=== PATIENT | female | born 1975 | race African-American/Black ===

== ENCOUNTER 2023-04-20 19:27 | Outpatient (REF) | payer OTHER, SELFPAY ==
[2023-04-26 15:10] LABS: Age Gdln ACOG Testing Note (.); HPV Aptima Negative (Negative); IGP, Aptima HPV, rfx 16/18,45 Note (.)
== END 2023-04-20 19:28 | disposition home or self-care (01) ==
LOC: LAB 19:27
PROVIDERS: Visit Provider Obstetrics & Gynecology
DX: Z12.4 Encounter for screening for malignant neoplasm of cervix (principal)
CPT/HCPCS: 87624; G0145

== ENCOUNTER 2024-04-23 21:54 | Outpatient (REF) | payer OTHER, SELFPAY | END 2024-04-23 21:55 | disposition home or self-care (01) | LOC: LAB 21:54 | PROVIDERS: Visit Provider Obstetrics & Gynecology | DX: Z01.419 Encounter for gynecological examination (general) (routine) without abnormal findings (principal) | CPT/HCPCS: 87624; 88175 ==

== ENCOUNTER 2025-04-25 12:57 | Outpatient (OUT) | payer OTHER, SELFPAY ==
--- OUTSIDE RECORDS SUMMARY | 2025-04-25 11:00 | XMS_ITS | Encounter Summary ---
Author Organization [facility] Address [address] [place] [address] Care Team Providers Care Process Development Chemist Name Role Phone Josefina Farias MD Primary Care Provider [phone] Brigida Gonzalez NP Unavailable Reason for Visit * Reason Comments Well Women Visit Encounter Details Date Type Department Care Team (Late st Contact Info) Description 04/25/2025 11:00 AM EDT Office Visit [facility] [address] [place] [address] Janay Brady, KESHA [address] [place] [address] Well woman exam with routine gynecological exam; [...] 12:04 PM EDT documented in this encounter Plan of Treatment Upcoming Encounters Date Type Department Care Team (Late st Contact Info) Description 04/28/2026 1:00 PM EDT Procedure Visit [facility] [address] [place] [address] Milton Schumacher DO [address] [place] [address] Scheduled Orders Name Type Priority Associated Diagnoses [...] Lab Routine Exposure to STD Ordered: 04/25/2025 documented as of this encounter [...] documented in this encounter Visit Diagnoses Diagnosis Well woman exam with routine gynecological exam Routine gynecological examination Breast cancer screening by mammogram Postmenopausal state Asymptomatic postmenopausal status (age-related) (natural) UTI symptoms Heat rash Prickly heat Exposure to STD documented in this encounter Care Teams Process Development Chemist Relationship Specialty Start Date End Date Josefina Farias MD [address] [place] [address] PCP - General Family Medicine 11/30/22 Brigida Gonzalez NP PCP - [facility] 01/23/24 documented as of this encounter
--- OUTSIDE RECORDS SUMMARY | 2025-04-25 13:03 | XMS_ITS | Encounter Summary ---
Author Organization [facility] Address [address] [place] [address] Care Team Providers Care Cinetechnician Name Role Phone Josefina Farias MD Unavailable Josefina Farias MD Primary Care Provider Denia Munoz MD Unavailable Brigida Gonzalez NP Unavailable Encounter Details Date Type Department Care Team (Late st Contact Info) Description 01/27/2023 Abstract [facility] Family Medicine [address] [place] [address] Sasha Demarco, MOVEMAN [address] [place] [address] Social History Tobacco Use Types Packs/Day Years Used Date Smoking Tobacco: Never Assessed Comments Unknown Sex and Gender Information Value Date Recorded Sex Assigned at Not on file Legal Sex Female 6:41 PM EDT Gender Identity Not on file Sexual Orientation Not on file documented as of this encounter Plan of Treatment Upcoming Encounters Date Type Department Care Team (Late st Contact Info) Description 04/28/2026 1:00 PM EDT Procedure Visit [facility] [address] [place] [address] Milton Schumacher DO [address] [place], [place] [id number] documented as of this encounter Visit Diagnoses Not on filedocumented in this encounter Care Teams Cinetechnician Relationship Specialty Start Date End Date Josefina Farias MD [address] [place], [place] [id number] PCP - [facility] 01/22/23 Josefina Farias MD [address] [place], [place] [id number] PCP - General Family Medicine 11/30/22 Denia Munoz MD [address] [place], [place] [id number] PCP - [facility] 10/24/23 Brigida Gonzalez NP PCP - [facility] 01/23/24 documented as of this encounter
--- OUTSIDE RECORDS SUMMARY | 2025-04-25 13:03 | XMS_ITS | Patient Health Record ---
Author Organization [facility] Address [address] [place], [place] [address] Care Team Providers Care Putter In Name Role Phone Vangie Amaya Unavailable [phone] Herminia Francis Unavailable [phone] Allergies No Known Allergies Reason For Referral No Information Social History Tobacco Use: Social History Observation Description Date Details (start date - stop date) Never Smoker NA - NA Sex Assigned At : Social History Observation Description Sex Assigned At Female Tobacco Control (Standard) Question Answer Notes Tobacco use: Nonsmoker Problems Problem Type SNOMED Code ICD Code Onset Dates Problem Status W/U Status Risk Notes Problem Obese class I ([id number]) BMI 33.0-33.9,a dult (Z68.33) Active confirmed Problem BMI 30+ - obesity (993408505) BMI 32.0-32.9,a dult (Z68.32) Active confirmed Vital Signs Heart Rate 95 /min 03/28/2025 Blood pressure diastolic 89 mm Hg 03/28/2025 Height-cm 160.02 cm 03/28/2025 Weight-kg 83.92 kg 03/28/2025 Height 63 in 03/28/2025 Blood pressure systolic 142 mm Hg 03/28/2025 Weight 185 lbs 03/28/2025 BMI 32.77 kg/m2 03/28/2025 Encounters Encounter Location Date Provider Diagnosis [facility] [address] [place], [place] [id number] 08/10/2024 Herminia Francis BMI 33.0-33.9,adul t Z68.33 ; Dietary counseling Z71.3 ; Exercise counseling Z71.82 ; Encounter for screening for dental disorders Z13.84 ; Dental caries into dentine K02.62 and Encounter for dental examination and cleaning with abnormal findings Z01.21 [facility] [address] [place], [place] [id number] 10/01/2024 Herminia Francis Dental caries into dentine K02.62 [facility] [address] [place], [place] [id number] 02/11/2025 Herminia Francis BMI 33.0-33.9,adul t Z68.33 ; Dietary counseling Z71.3 ; Exercise counseling Z71.82 ; Dental caries into dentine K02.62 and Encounter for dental examination and cleaning with abnormal findings Z01.21 [facility] [address] [place], [place] [id number] 03/28/2025 Vangie Amaya BMI 32.0-32.9,adul t Z68.32 and Dental caries into dentine K02.62 Assessments Encounter Date Diagnosis (ICD Code) Assessment Notes Treatment Notes Treatment Clinical Notes Section Notes 08/10/2024 BMI 33.0-33.9,adult (ICD-10 - Z68.33) 10/01/2024 Dental caries into dentine (ICD-10 - K02.62) 02/11/2025 BMI 33.0-33.9,adult (ICD-10 - Z68.33) 03/28/2025 BMI 32.0-32.9,adult (ICD-10 - Z68.32) 03/28/2025 Dental caries into dentine (ICD-10 - K02.62) 02/11/2025 Dietary counseling (ICD-10 - Z71.3) 08/10/2024 Dietary counseling (ICD-10 - Z71.3) 08/10/2024 Exercise counseling (ICD-10 - Z71.82) 02/11/2025 Exercise counseling (ICD-10 - Z71.82) 02/11/2025 Dental caries into dentine (ICD-10 - K02.62) 08/10/2024 Encounter for screening for dental disorders (ICD-10 - Z13.84) 08/10/2024 Dental caries into dentine (ICD-10 - K02.62) 02/11/2025 Encounter for dental examination and cleaning with abnormal findings (ICD-10 - Z01.21) 08/10/2024 Encounter for dental examination and cleaning with abnormal findings (ICD-10 - Z01.21) Plan Of Treatment Next Appt Details Provider Name:Vangie light, 05/02/2025 12:45:00 PM, [address] [place] [address], [phone], Provider Name:Vangie light, 08/29/2025 12:45:00 PM, [address] [place] [address], [phone], Insurance Providers Payer Name Payer Address Payer Phone Subscriber Number Group Number Insured Name Patient Relationship to Insured Coverage Start Date Coverage End Date [employer]e [employer] [facility] [address] [address] [place] [address] [id number] Felicitas Steve Self - patient is the insured 3 [employer]icai d [facility] after Sondra Adams e [employer] [address] [place], [place] [id number] Felicitas Steve Self - patient is the insured 3
--- OUTSIDE RECORDS SUMMARY | 2025-04-25 13:03 | XMS_ITS | Encounter Summary ---
Author Organization [facility] Address [address] [place] [address] Care Team Providers Care School Custodian Name Role Phone Josefina Farias MD Primary Care Provider [phone] Brigida Gonzalez OVERLOCK ELASTIC ATTACHER Unavailable Encounter Details Date Type Department Care Team (Late Contact Info) Description 04/23/2024 Abstract [facility] [address] [place] [address] Milton Schumacher, [address] [place], [facility] Social History Tobacco Use Types Packs/Day Years Used Date Smoking Tobacco: Never Smokeless Tobacco: Never Alcohol Use Standard Drinks/Week Comments Yes 2 (1 standard drink = 0.6 oz pure alcohol) Alcohol: 1 or 2 drinks on a typical day / 2 to 4 times a month. Caffeine: 1-2 cups/day soda, tea PHQ-2 Answer Date Recorded Patient Health Questionnaire-2 Score 0 05/06/2023 Comments Unknown Sex and Gender Information Value Date Recorded Sex Assigned at Not on file Legal Sex Female 6:41 PM EDT Gender Identity Not on file Sexual Orientation Not on file documented as of this encounter Plan of Treatment Upcoming Encounters Date Type Department Care Team (Late Contact Info) Description 04/28/2026 1:00 PM EDT Procedure Visit [facility] [address] [place] [address] Milton Schumacher [address] [place] [address] documented as of this encounter Visit Diagnoses Not on filedocumented in this encounter Care Teams School Custodian Relationship Specialty Start Date End Date Josefina Farias MD [address] [place] [address] PCP - General Family Medicine 11/30/22 Brigida Gonzalez NP PCP - [facility] 01/23/24 documented as of this encounter
--- OUTSIDE RECORDS SUMMARY | 2025-04-25 13:03 | XMS_ITS | Encounter Summary ---
Author Organization [facility] Address [address] [place] [address] Care Team Providers Care Boat Builder Name Role Phone Josefina Farias MD Primary Care Provider [phone] Brigida Gonzalez TAX SERVICES PROFESSIONAL Unavailable Encounter Details Date Type Department Care Team (Latest Contact Info) Description 04/24/2025 Travel Social History Tobacco Use Types Packs/Day Years [...] EDT Procedure Visit [facility] [address] [place] [address] Milton Schumacher DO [address] [place] [address] documented as of this encounter Visit Diagnoses Not on filedocumented in this encounter Care Teams Boat Builder Relationship Specialty Start Date End Date Josefina Farias MD [address] [place] [address] PCP - General Family Medicine 11/30/22 Brigida Gonzalez NP PCP - [facility] 01/23/24 documented as of this encounter
--- OUTSIDE RECORDS SUMMARY | 2025-04-25 13:03 | XMS_ITS | Clinical Summary ---
Author Organization [employer] Address [id number] [address] [place] [address] Care Team Providers Care Prepared Foods Team Leader Name Role Phone Josefina Farias MD Primary Care Provider [phone] Allergies Active Allergy Reactions Criticality Noted Date Comments Propoxyphene Other (See Comments) 04/19/2023 Darvocet Medications cyclobenzaprine (FLEXERIL) 10 mg tablet Take 1 tablet (10 mg total) by mouth 2 (two) times a day as needed for muscle spasms. 10 tablet 05/03/2023 Active ibuprofen (MOTRIN) 800 mg tablet Take 1 tablet (800 mg total) by mouth every 6 (six) hours as needed for pain. 30 tablet 05/03/2023 Active lidocaine (LIDODERM) 5 % Place 1 patch on the skin daily. Remove & Discard patch within 12 hours or as directed by 15 patch 05/03/2023 Active Encounters Date Type Department Care Team Description 04/23/2025 Telephone [facility] Janay Henao CMA Establish Care from Last 3 Months Family History Medical History Relation Name Comments No Known Problems Cousin No Known Problems Daughter No Known Problems Father No Known Problems Maternal Aunt No Known Problems Maternal Grandfather No Known Problems Maternal Grandmother No Known Problems Mother No Known Problems Paternal Aunt No Known Problems Paternal Grandfather No Known Problems Paternal Grandmother No Known Problems Sister BRCA 1/2 Neg Hx Breast cancer Neg Hx Endometrial cancer Neg Hx Ovarian cancer Neg Hx Relation Name Status Comments Cousin Daughter Father Maternal Aunt Maternal Grandfather Maternal Grandmother Mother Paternal Aunt Paternal Grandfather Paternal Grandmother Sister Social History Tobacco Use Types Packs/Day Years Used Date Smoking Tobacco: Never Assessed Childcare Answer Date Recorded Childcare Unknown 01/03/2019 Employment Answer Date Recorded Employment Unknown 01/03/2019 Purpose - Life Answer Date Recorded Purpose and direction in life Unknown Comments Unknown Sex and Gender Information Value Date Recorded Sex Assigned at Not on file Legal Sex Female 11:43 AM EDT Gender Identity Not on file Sexual Orientation Not on file Last Filed Vital Signs Vital Sign Reading Time Taken Comments Blood Pressure 152/91 05/03/2023 10:10 PM EDT Pulse 87 05/03/2023 8:55 PM EDT Temperature 36.8 C (98.3 F) 05/03/2023 8:55 PM EDT Respiratory Rate 20 05/03/2023 8:55 PM EDT Oxygen Saturation 97% 05/03/2023 10:10 PM EDT Inhaled Oxygen Concentration - - Weight 86.6 kg (191 lb) 05/03/2023 8:55 PM EDT Height 160 cm (5' 3 ) 05/03/2023 8:55 PM EDT Body Mass Index 33.83 05/03/2023 8:55 PM EDT Plan of Treatment Health Maintenance Due Date Last Done Comments Depression Screening 1986 Tobacco Screening 1986 Adult BMI Screening 05/03/2024 05/03/2023 Zoster (Shingles) Vaccine (1 of 2) 2024 COVID-19 Vaccine ( - 2024-2 6 season) 2025 06/08/2021, 11/11/2020, 10/21/2020 Influenza Vaccine 03/25/2025 DTaP,Tdap and Td Vaccines (2 - Td or Tdap) 11/02/2026 11/02/2016 Pap Smear 04/23/2027 04/23/2024 Medical Devices Not on file Insurance [employer] Care Teams Prepared Foods Team Leader Relationship Specialty Start Date End Date Josefina Farias MD PCP - General Family Medicine 05/03/23
--- OUTSIDE RECORDS SUMMARY | 2025-04-25 13:03 | XMS_ITS | Encounter Summary ---
Author Organization [facility] Address [address] [place] [address] Care Team Providers Care Mailroom Manager Name Role Phone Josefina Farias MD Primary Care Provider [phone] Brigida Gonzalez NP Unavailable Encounter Details Date Type Department Care Team (Late Contact Info) Description 04/25/2025 Bamboo flowsheet [facility] [address] [facility] [place] [place] [address] Janay Brady, KESHA [address] [facility] [place] [address] Social History Tobacco Use Types Packs/Day Years [...] 1:00 PM EDT Procedure Visit [facility] [address] [facility] [place] [place] [address] Milton Schumacher, [address] [place] [address] documented as of this encounter Visit Diagnoses Not on filedocumented in this encounter Care Teams Mailroom Manager Relationship Specialty Start Date End Date Josefina Farias MD [address] [place] [address] PCP - General Family Medicine 11/30/22 Brigida Gonzalez NP PCP - [facility] 01/23/24 documented as of this encounter
--- OUTSIDE RECORDS SUMMARY | 2025-04-25 13:03 | XMS_ITS | Encounter Summary ---
Author Organization [facility] Address [address] [place] [address] Care Team Providers Care Pipe Coverer Helper Name Role Phone Josefina Farias MD Unavailable Josefina Farias MD Primary Care Provider [phone] Denia Munoz MD Unavailable Brigida Gonzalez NP Unavailable Encounter Details Date Type Department Care Team (Late st Contact Info) Description 05/13/2023 Abstract [facility] Family Medicine [address] [place] [address] Dilcia Elizabeth NP [address] [place] [id number] Social History Tobacco Use Types Packs/Day Years Used Date Smoking Tobacco: Never Smokeless Tobacco: Never Tobacco Cessation:Counseling Given: Not Answered Alcohol Use Standard Drinks/Week Comments Yes 2 [...] EDT Procedure Visit [facility] [address] [facility] [place] [address] Milton Schumacher DO [address] [facility] [place] [address] documented as of this encounter Visit Diagnoses Not on filedocumented in this encounter Care Teams Pipe Coverer Helper Relationship Specialty Start Date End Date Josefina Farias MD [address] [place] [address] PCP - [facility] 01/22/23 Josefina Farias MD [address] [place], [place] [id number] PCP - General Family Medicine 11/30/22 Denia Munoz MD [address] [place] [address] PCP - [facility] 10/24/23 Brigida Gonzalez NP PCP - [facility] 01/23/24 documented as of this encounter
--- OUTSIDE RECORDS SUMMARY | 2025-04-25 13:03 | XMS_ITS | Clinical Summary ---
Author Organization [facility] Address [address] [place] [address] Care Team Providers Care Contact Center Agent Name Role Phone Josefina Farias MD Primary Care Provider [phone] Brigida Gonzalez NP Unavailable Allergies No known active allergies Medications nystatin (Mycostatin) 787178 UNIT/GM powderIndicati ons:Postmenopa usal state,Heat rash Apply topically in the morning and in the evening and before bedtime. 15 g 04/25/20 25 026 Active valACYclovir (Valtrex) 1 g tabletIndicati ons:Exposure to STD Take 0.5 tablets (500 mg) by mouth Daily 30 tablet 04/25/20 25 025 Active metFORMIN XR (Glucophage-XR ) 500 MG 24 hr tabletIndicati ons:Encounter for weight management Take 1 tablet (500 mg) by mouth in the evening. Take with meals Do not crush, chew, or split. 30 tablet 11 04/23/20 24 025 Discontinued phentermine (Adipex-P) 37.5 MG tabletIndicati ons:Encounter for weight management Take 1 tablet (37.5 mg) by mouth in the morning. Take before meals. 90 tablet 08/20/19 25 025 Discontinued phentermine (Adipex-P) 37.5 MG tabletIndicati ons:Encounter for weight management Take 1 tablet (37.5 mg) by mouth in the morning. Take before meals. 90 tablet 11/13/19 25 025 Discontinued valACYclovir (Valtrex) 1 g tablet TAKE 1 TABLET BY MOUTH TWICE DAILY FOR 10 DAYS (MORNING AND BEFORE BEDTIME) 12/15/19 25 025 Discontinued(Re order) Active Problems Problem Noted Date Diagnosed Date Abnormal mammogram 05/06/2023 Abnormal weight gain 05/06/2023 Absence of bladder continence 05/06/2023 Essential hypertension 05/06/2023 Herpes simplex viral infection 05/06/2023 Increased thirst 05/06/2023 Irregular menses 05/06/2023 Major depressive disorder, single episode, moder ate 05/06/2023 Menometrorrhagia 05/06/2023 Mood disorder 05/06/2023 Obstructive sleep apnea syndrome 05/06/2023 Other chronic pain 05/06/2023 Mixed stress and urge urinary incontinence 05/06 Subacute vaginitis 05/06/2023 Uterine leiomyoma 05/06/2023 Encounters Date Type Department Care Team Description 04/25/2025 11:00 AM EDT Office Visit [facility] [address] [place] [address] [place] [address] Janay Brady NP Well woman exam with routine gynecological exam; Breast cancer screening by mammogram; Postmenopausal state; UTI symptoms; Heat rash; Exposure to STD 04/25/2025 Bamboo flowsheet [facility] [address] [place] [address] [place] [address] Janay Brady NP 04/24/2025 Travel from Last 3 Months Immunizations Immunization Administration Dates Next Due Tdap 11/02/2016 Family History Medical History Relation Name Comments Lung cancer Father Hypertension Mother Trace Yepez Rheum arthritis Mother Trace Yepez Scleroderma Sister Relation Name Status Comments Daughter Alive 2 daughters Father Mother Trace Yepez Alive Sister 1 sister Son Alive 1 son Social History Tobacco Use Types Packs/Day Years [...] Pressure 110/68 04/25/2025 11:42 AM EDT Pulse 76 07/27/2023 9:27 AM EST Temperature 37 C (98.6 F) 07/27/2023 9:27 AM EST Respiratory Rate 18 07/27/2023 9:27 AM EST Oxygen Saturation 98% 07/27/2023 9:27 AM EST Inhaled Oxygen Concentration - - Weight 84.3 kg (185 lb 12.8 oz) 025 11:42 AM EDT Height 167.6 cm (5' 6 ) 05/21/2024 12:0 4 PM EDT Body Mass Index 29.99 05/21/2024 12:04 PM EDT Plan of Treatment Upcoming Encounters Date Type Department Care Team (Late st Contact Info) Description 04/28/2026 1:00 PM EDT Procedure Visit [facility] [address] [place] [address] Milton Schumacher DO [address] [facility] [place] [address] Health Maintenance Due Date Last Done Comments CT Colonography 1974 Colonoscopy 1974 Colorectal Cancer Screening 1975 FIT-DNA 1974 FIT 1974 FOBT 1975 Sigmoidoscopy 1974 HPV/Cotest 2004 Mammogram 05/05/2024 05/05/2023, 02/22, 10/19/2018, Additional history exists Influenza Vaccine (#1) 2025 Cervical Cancer Screening 04/23/2027 Pap Smear 04/23/2027 04/23/2024 Procedures Procedure Name Priority Date/Time Associated Diagnosis Comments POCT URINALYSIS DIPSTICK Routine 04/25/2025 11:52 AM EDT UTI symptoms PAP SMEAR Routine 04/23/2024 12:00 AM EDT BI MAMMOGRAM SCREENING TOMOSYNTHESIS BILATERAL Routine 05/05/2023 12:18 PM EDT Breast cancer screening by mammogram from Last 3 Months or Most Recently Relevant to Health Maintenance Results * (ABNORMAL) POCT urinalysis dipstick manually [...] OF CARE TEST ENTER/EDIT ORDERABLES Final Result * Pap Smear (04/23/2024 12:00 AM EDT) Swab Cervical swab / Unknown Milton Schumacher DO LAB CYTOLOGY ORDERABLES Final Re sult EXTERNAL LAB * Bilateral screening mammogram with tomosynthesis (05/05/2023 12:18 PM EDT) Anatomical Region Laterality Modality Breast Bilateral Mammography 06/24/2023 9:30 AM EST Impressions 06/24/2023 10:36 AM EST BIRADS 1 - Negative Follow-up: Routine Screening Mamm . Board Certified Radiologists. Accredited by the ACR and FDA. MAMMOGRAPHY IS VERY IMPORTANT TO YOUR HEALTH. THE [employer] GUIDELINES RECOMMEND THAT WOMEN 40 YEARS OF AGE AND OLDER SHOULD HAVE A MAMMOGRAM EVERY YEAR. A REMINDER LETTER WILL BE SENT AT THE APPROPRIATE TIME. THIS FACILITY UTILIZES A REMINDER SYSTEM TO ENSURE ALL PATIENTS RECEIVE REMINDER NOTIFICATIONS AT THE APPROPRIATE TIME BASED ON THE RECOMMENDATIONS OF THIS EXAM. THIS INCLUDES REMINDERS FOR ROUTINE SCREENING MAMMOGRAMS, DIAGNOSTIC MAMMOGRAMS IN WHICH THE PATIENT IS ASKED TO RETURN FOR ADDITIONAL VIEWS, OR OTHER BREAST IMAGING INTERVENTIONS WHEN APPROPRIATE. THE PATIENT WILL BE PLACED IN THE APPROPRIATE REMINDER SYSTEM INCLUDING A REMINDER AT THE APPROPRIATE TIME FOR ANY PENDING ADDITIONAL VIEWS. TRANSCRIBED BY: ELECTRONICALLY SIGNED BY: Demarco Aguillon MD Narrative 06/24/2023 10:36 AM EST EXAMINATION: BI MAMMOGRAM SCREENING TOMOSYNTHESIS BILATERAL CLINICAL HISTORY: screening COMPARISON: There are no previous mammograms available for comparison. RESULT: Digital mammography and 3D tomosynthesis of bilateral breasts was performed. There are scattered areas of fibroglandular density. There is no suspicious mass, asymmetry, architectural distortion, or calcification. Procedure Note Demarco Aguillon MD - 06/24/2023 EXAMINATION: BI MAMMOGRAM SCREENING TOMOSYNTHESIS BILATERAL CLINICAL HISTORY: screening COMPARISON: There are no previous mammograms available for comparison. RESULT: Digital mammography and 3D tomosynthesis of bilateral breasts wasperformed. There are scattered areas of fibroglandular density. There is no suspicious mass, asymmetry, architectural distortion, orcalcification. IMPRESSION: BIRADS 1 - Negative Follow-up: Routine Screening Mamm . Board Certified Radiologists. Accredited by the ACR and FDA. MAMMOGRAPHY IS VERY IMPORTANT TO YOUR HEALTH. THE [employer] CANC[employer] SOCIETYGUIDELINES RECOMMEND THAT WOMEN 40 YEARS OF AGE AND OLDER SHOULD HAVE AMAMMOGRAM EVERY YEAR. A REMINDER LETTER WILL BE SENT AT THE APPROPRIATE TIME. THIS FACILITYUTILIZES A REMINDER SYSTEM TO ENSURE ALL PATIENTS RECEIVE REMINDERNOTIFICATIONS AT THE APPROPRIATE TIME BASED ON THE RECOMMENDATIONS OF THISEXAM. THIS INCLUDES REMINDERS FOR ROUTINE SCREENING MAMMOGRAMS, DIAGNOSTICMAMMOGRAMS IN WHICH THE PATIENT IS ASKED TO RETURN FOR ADDITIONAL VIEWS,OR OTHER BREAST IMAGING INTERVENTIONS WHEN APPROPRIATE. THE PATIENT WILLBE PLACED IN THE APPROPRIATE REMINDER SYSTEM INCLUDING A REMINDER AT THEAPPROPRIATE TIME FOR ANY PENDING ADDITIONAL VIEWS. TRANSCRIBED BY: ELECTRONICALLY SIGNED BY: Demarco Aguillon MD Milton Schumacher DO IMG BI PROCEDURES Final Result from Last 3 Months or Most Recently Relevant to Health Maintenance Insurance [employer] Care Teams Contact Center Agent Relationship Specialty Start Date End Date Josefina Farias MD [address] [place], [place] [id number] PCP - General Family Medicine 11/30/22 Brigida Gonzalez NP PCP - [facility] 01/23/24
--- OUTSIDE RECORDS SUMMARY | 2025-04-25 13:03 | XMS_ITS | Encounter Summary ---
Author Organization [facility] Address [address] [place] [address] Care Team Providers Care Chartered Wealth Manager Name Role Phone Josefina Farias MD Primary Care Provider [phone] Brigida Gonzalez SECONDARY HISTORY TEACHER Unavailable Encounter Details Date Type Department Care Team (Late Contact Info) Description 05/02/2024 Orders Only [facility] [address] [place] [address] Merline Arroyo LPN [address] [place] [address] Social History Tobacco Use Types Packs/Day Years [...] EDT Procedure Visit [facility] [address] [place] [address] Milton Schumacher DO [address] [place] [address] [place] [address] documented as of this encounter Procedures Procedure Name Priority Date/Time Associated Diagnosis Comments PAP SMEAR Routine 04/23/2024 12:00 AM EDT documented in this encounter Results * Pap Smear (04/23/2024 12:00 AM EDT) Swab Cervical swab / Unknown Milton Schumacher DO LAB CYTOLOGY ORDERABLES Final Re sult EXTERNAL LAB documented in this encounter Visit Diagnoses Not on filedocumented in this encounter Care Teams Chartered Wealth Manager Relationship Specialty Start Date End Date Josefina Farias MD [address] [place] [address] PCP - General Family Medicine 11/30/22 Brigida Gonzalez NP PCP - [facility] 01/23/24 documented as of this encounter
--- OUTSIDE RECORDS SUMMARY | 2025-04-25 13:03 | XMS_ITS | Encounter Summary ---
Author Organization [facility] Address [id number] [address] [place] [address] Care Team Providers Care Mannequin Decorator Name Role Phone Josefina Farias MD Primary Care Provider [phone] Reason for Visit * Reason Onset Date Comments Establish Care 04/23/2025 Encounter Details Date Type Department Care Team (Late st Contact Info) Description 04/23/2025 Telephone [facility] Janay Henao CMA Establish Care Social History Tobacco Use Types Packs/Day Years [...] on file documented as of this encounter Miscellaneous Notes * Telephone Encounter - Janay Henao CMA - 04/23/2025 3:25 PM EDT EMPANELMENT OUTREACH Felicitas Steve has been contacted in effort to establish and/or re- establish care as a new patient with [facility]: Yes Outreach Date: April 23, 2025 Outreach Reason: Attribution Outreach Method: Telephone Outreach Attempt: First Attempt Outreach Outcome: Contacted Patient New Patient Appointment: Declined Attributed Provider: Fanta Gomez CNP Additional Comments: Patient states that she has a primary care provider and will call and update her insurance carrier. documented in this encounter Plan of Treatment Not on file documented as of this encounter Visit Diagnoses Not on filedocumented in this encounter Care Teams Mannequin Decorator Relationship Specialty Start Date End Date Josefina Farias MD PCP - General Family Medicine 05/03/23 documented as of this encounter
--- OUTSIDE RECORDS SUMMARY | 2025-04-25 13:03 | XMS_ITS | Encounter Summary ---
Author Organization [facility] Address [address] [facility] [place] [address] Care Team Providers Care Golf Teacher Name Role Phone Josefina Farias MD Unavailable Josefina Farias MD Primary Care Provider Denia Munoz MD Unavailable Brigida Gonzalez NP Unavailable Encounter Details Date Type Department Care Team (Late st Contact Info) Description 01/31/2023 Abstract [facility] Family Medicine [address] [place] [address] Josefina Farias MD [address] [place], [place] [id number] Social History Tobacco Use Types Packs/Day Years [...] Description 04/28/2026 1:00 PM EDT Procedure Visit [facility] [place] [facility] [address] [facility] [place] [address] Milton Schumacher DO [address] [place] [place], [place] [id number] documented as of this encounter Visit Diagnoses Not on filedocumented in this encounter Care Teams Golf Teacher Relationship Specialty Start Date End Date Josefina Farias MD [address] [place], [place] [id number] PCP - [facility] 01/22/23 Josefina Farias MD [address] [place], [place] [phone] PCP - General Family Medicine 11/30/22 Denia Munoz MD [address] [place], [place] [id number] PCP - [facility] 10/24/23 Brigida Gonzalez NP PCP - [facility] 01/23/24 documented as of this encounter
--- OUTSIDE RECORDS SUMMARY | 2025-04-25 13:03 | XMS_ITS | Encounter Summary ---
Author Organization [facility] Address [address] [place] [address] Care Team Providers Care Auto Overhauler Name Role Phone Josefina Farias MD Primary Care Provider [phone] Brigida Gonzalez JUVENILE CORRECTIONAL OFFICER Unavailable Encounter Details Date Type Department Care Team (Late Contact Info) Description 11/23/2024 Abstract [facility] [address] [place] [address] Milton Schumacher, [address] [place], [facility] Social History Tobacco Use Types Packs/Day Years [...] Procedure Visit [facility] [address] [place] [address] Milton Schumacher [address] [place] [address] documented as of this encounter Visit Diagnoses Not on filedocumented in this encounter Care Teams Auto Overhauler Relationship Specialty Start Date End Date Josefina Farias MD [address] [place] [address] PCP - General Family Medicine 11/30/22 Brigida Gonzalez NP PCP - [facility] 01/23/24 documented as of this encounter
--- NOTE | 2025-04-25 13:07 | MM_ITS ---
Patient Name: JAGDISH VIVAS MR#: [id number] : 1975 Exam Date: 04/25/2025 Ordering Doctor: DR CARLEE SANCHEZ . RADIOLOGY REPORT PROCEDURE: MM TOMOSYNTHESIS SCREENING BI COMPARISON: MG MAMM SCREEN 3D [place] CAD, 04/22/2022. MG MAMM SCREEN 3D [place] CAD, 03/09/2021. MG MAMM SCREEN 3D [place] CAD, 11/10/2016. INDICATIONS: Screening Calculator Name NCI Breast Cancer Risk Assessment Tool 5 Year Breast Cancer Risk 1.10% Lifetime Breast Cancer Risk 8.70% Personal Breast Cancer No Personal Ovarian Cancer No Treatments None Family Cancers None LOCATION: [facility] BREAST COMPOSITION: The breasts are heterogeneously dense, which may obscure small masses. FINDINGS: RIGHT BREAST: No significant suspicious finding. Similar focal asymmetries are present. LEFT BREAST: No significant suspicious finding. Similar focal asymmetries are present. DIAGNOSTIC CATEGORY 2--BENIGN FINDING. NO CHANGE FROM COMPARISON. RECOMMENDATIONS: ROUTINE MAMMOGRAM AND CLINICAL EVALUATION IN 12 MONTHS. Dictated by: Emiliano Bowie MD on 04/25/2025 at 17:13 Approved by: Emiliano Bowie MD on 04/25/2025 at 17:17
--- OUTSIDE RECORDS SUMMARY | 2025-04-25 19:00 | XMS_ITS | CCD ---
Author Organization [facility] Care Team Providers Care Manufacture Specialist Name Role Phone DAISY, DR WATERMAN Primary Care Unavailable ENDY, DR BEJARANO Attending Unavailable ENDY, DR BEJARANO Consulting Unavailable ENDY, DR BEJARANO Admitting Unavailable DAISY, DR WATERMAN Primary Care Unavailable ENDY, DR BEJARANO Attending Unavailable ENDY, DR BEJARANO Admitting Unavailable MOTT, DR KELLY Cash Consulting Unavailable ENDY, DR BEJARANO Consulting Unavailable ZIEBER, DR KEILA Hodge Consulting Unavailable DENNIS MASON Attending Unavailable MARLON, DENNIS Consulting Unavailable DENNIS MASON Admitting Unavailable DAISY, DR WATERMAN Primary Care Unavailable Josefina Farias MD Primary Care Provider Brigida Gonzalez NP Unavailable JOSEFINA FARIAS Primary Care Physician Carlos REBOLLEDO, Brigida Hodge Unavailable ALESSIA VELOZ Attending Unavailable ALESSIA VELOZ Attending Unavailable CARLEE SCHUMACHER Attending Unavailable ALESSIA VELOZ Attending Unavailable OrYumi garcia Attending Unavailable ELIAS ROSARIO Attending Unavailable Carlee SCHUMACHER Referring Unavailable ELIAS ROSARIO Attending Unavailable Carlee SCHUMACHER Referring Unavailable Allergies Allergy Classification Reported Allergen(s) Allergy Type Date of Onset Reaction(s) Facility (16 sources) Propoxyphene; Translations: [propoxyphene] Drug Allergy 3 Unknown, Unknown (qualifier value) [facility] Medications Current Medications Medication Drug Class(es) Dates Sig (Normalized) Sig (Original) 24 hr metFORMIN hydrochloride 500 mg extended release oral tablet (13 sources) Biguanide Start: 04-23-2024 End: 05-23-2024 take 1 tablet by mouth every twenty-four hours at mealtime metFORMIN XR (Glucophage-XR) 500 MG 24 hr tablet Indications: Encounter for weight management Take 1 tablet (500 mg) by mouth in the evening. Take with meals Do not crush, chew, or split. 30 tablet 11 04/23/2024 Active metroNIDAZOLE 500 mg oral tablet (3 sources) Nitroimidazole Antimicrobial Start: 11-12-2024 End: 11-19-2024 take 1 tablet by mouth in the morning metroNIDAZOLE (Flagyl) 500 MG tablet Indications: Bacterial vaginosis Take 1 tablet (500 mg) by mouth in the morning and 1 tablet (500 mg) before bedtime. Do all this for 7 days. Do not drink alcohol while taking this medication. 14 tablet 1 11/12/2024 11/19/2024 Active Start: 06-20-2024 End: 06-30-2024 take 1 tablet by mouth in the morning, then take 1 tablet by mouth in the evening, then take 1 tablet by mouth at bedtime metroNIDAZOLE (Flagyl) 500 MG tablet Indications: Bacterial vaginitis Take 1 tablet (500 mg) by mouth in the morning and 1 tablet (500 mg) in the evening and 1 tablet (500 mg) before bedtime. Do all this for 10 days. 30 tablet 06/20/2024 06/30/2024 Active phentermine hydrochloride 37.5 mg oral tablet (18 sources) Sympathomimetic Amine Anorectic Start: 04-23-2024 End: 02-10-2025 take 1 tablet by mouth before mealtime phentermine (Adipex-P) 37.5 MG tablet Indications: Encounter for weight management Take 1 tablet (37.5 mg) by mouth in the morning. Take before meals. 90 tablet 11/12/2024 02/10/2025 Active valACYclovir 1000 mg oral tablet (4 sources) Herpesvirus Nucleoside Analog DNA Polymerase Inhibitor, Herpes Simplex Virus Nucleoside Analog DNA Polymerase Inhibitor, Herpes Zoster Virus Nucleoside Analog DNA Polymerase Inhibitor Start: 04-23-2024 End: 05-03-2024 take 1 tablet by mouth in the morning valACYclovir (Valtrex) 1 g tablet Indications: HSV infection Take 1 tablet (1,000 mg) by mouth in the morning and 1 tablet (1,000 mg) before bedtime. Do all this for 10 days. 20 tablet 3 04/23/2024 05/03/2024 Active Completed/Discontinued Medications Medication Drug Class(es) Dates Sig (Normalized) Sig (Original) cyclobenzaprine hydrochloride 10 mg oral tablet (3 sources) Muscle Relaxant Start: 05-03-2023 End: 04-23-2024 take 1 tablet by mouth twice daily as needed cyclobenzaprine (Flexeril) 10 MG tablet Take 10 mg by mouth 2 (two) times a day as needed. 05/03/2023 04/23/2024 Discontinued (Other) fluconazole 150 mg oral tablet (2 sources) Azole Antifungal Start: 11-12-2024 End: 11-12-2024 take 1 tablet by mouth once fluconazole (Diflucan) 150 MG tablet Indications: Yeast infection Take 1 tablet (150 mg) by mouth 1 (one) time for 1 dose 1 tablet 1 11/12/2024 11/12/2024 ibuprofen 800 mg oral tablet (3 sources) Nonsteroidal Anti-inflammatory Drug Start: 05-03-2023 End: 04-23-2024 take 1 tablet by mouth every six hours as needed ibuprofen 800 MG tablet Take 800 mg by mouth every 6 (six) hours if needed. 05/03/2023 04/23/2024 Discontinued (Other) lidocaine 0.05 mg/mg medicated patch (3 sources) Antiarrhythmic, Amide Local Anesthetic Start: 05-03-2023 End: 04-23-2024 apply 1 dose transdermal route once daily lidocaine (Lidoderm) 5 % patch Place 1 patch on the skin 1 (one) time each day at the same time. 05/03/2023 04/23/2024 Discontinued (Other) nystatin 100 unt/mg topical powder (3 sources) Polyene Antifungal Start: 05-25-2023 End: 05-24-2024 nystatin (Mycostatin) 616161 UNIT/GM powder Indications: Intertrigo Apply topically 2 (two) times a day. 60 g 3 05/25/2023 04/23/2024 Discontinued (Other) Problems Active Problems Problem Classification Problem Date Documented Date Episodic/Chronic Abdominal pain (4 sources) Pelvic and perineal pain; Translations: [PELVIC AND PERINEAL PAIN] Onset: 04-22-2022 Episodic Administrative/social admission (7 sources) Patient encounter status; Translations: [Persons encountering health services in other specified circumstances] 05-21-2024 Episodic Essential hypertension (15 sources) Essential hypertension; Translations: [Essential (primary) hypertension] Onset: 05-06-2023 05-06-2023 Chronic Genitourinary symptoms and ill-defined conditions (20 sources) Urinary incontinence; Translations: [Unspecified urinary incontinence] Onset: 05-06-2023 05-06-2023 Chronic Genitourinary symptoms and ill-defined conditions (3 sources) Urgent desire to urinate; Translations: [Urgency of urination] 04-23-2024 Episodic Immunizations and screening for infectious disease (1 source) Encounter for screening for human papillomavirus (HPV); Translations: [ENC SCREENING HUMAN PAPILLOMAVIRUS] Onset: 04-21-2022 Episodic Menstrual disorders (20 sources) Irregular periods; Translations: [Irregular menstruation, unspecified] Onset: 05-06-2023 05-06-2023 Chronic Mood disorders (20 sources) Moderate major depression, single episode; Translations: [Major depressive disorder, single episode, moderate] Onset: 05-06-2023 05-06-2023 Chronic Mycoses (3 sources) Mycosis; Translations: [Candidiasis, unspecified] 11-12-2024 Episodic Other nervous system disorders (14 sources) Chronic pain; Translations: [Other chronic pain] Onset: 05-06-2023 05-06-2023 Chronic Residual codes; unclassified (15 sources) Obstructive sleep apnea syndrome; Translations: [Obstructive sleep apnea (adult) (pediatric)] Onset: 05-06-2023 05-06-2023 Chronic Unclassified (3 sources) CONTACT W/AND (SUSP) EXPOS COVID-19; Translations: [CONTACT W/AND (SUSP) EXPOS COVID-19] Onset: 07-21-2021 Unclassified (1 source) COUGH, UNSPECIFIED; Translations: [COUGH, UNSPECIFIED] Onset: 07-21-2021 Past or Other Problems Problem Classification Problem Date Documented Da te Episodic/Chronic Benign neoplasm of uterus (17 sources) Uterine leiomyoma; Translations: [Leiomyoma of uterus, unspecified] Onset: 05-06-2023 05-06-2023 Episodic Inflammatory diseases of female pelvic organs (18 sources) Subacute vaginitis; Translations: [Subacute and chronic vaginitis] Onset: 05-06-2023 05-06-2023 Episodic Other nutritional; endocrine; and metabolic disorders (14 sources) Abnormal weight gain; Translations: [Abnormal weight gain] Onset: 05-06-2023 05-06-2023 Episodic Other nutritional; endocrine; and metabolic disorders (14 sources) Increased thirst; Translations: [Polydipsia] Onset: 05-06-2023 05-06-2023 Episodic Other screening for suspected conditions (not mental disorders or infectious disease) (20 sources) Encounter for screening mammogram for malignant neoplasm of breast; Translations: [Encounter for screening for malignant neoplasm of cervix] Onset: 04-19-2022 Episodic Other upper respiratory disease (1 source) Nasal congestion; Translations: [NASAL CONGESTION] Onset: 07-21-2021 Episodic Residual codes; unclassified (1 source) Chronic pain Onset: 05-06-2023 11-20-2024 Episodic Unclassified (1 source) CONTACT W/AND (SUSP) EXPOS COVID-19; Translations: [CONTACT W/AND (SUSP) EXPOS COVID-19] Onset: 07-15-2021 Viral infection (17 sources) Herpes simplex; Translations: [Herpesviral infection, unspecified] Onset: 05-06-2023 05-06-2023 Episodic Results Test Name Value Interpretation Reference Range Facility Ambulatory Visit Summaryon 0 11-20-2024 Ambulatory Visit Summary Ambulatory Visit Summary JAGDISH VIVAS :1975 Visit Date:11/20/2024 Ambulatory Visit Instructions Your Diagnosis Urge incontinence Stress incontinence Your Care Team Attending Physician - ELIAS ROSARIO PA-C Primary Care Physician - JOSEFINA FARIAS MD Referring Physician - Carlee SCHUMACHER DO This Is Your Medications List solifenacin (Vesicare 5 mg Tab) Procedures Performed Salpingectomy for tubal ectopic by abdominal approach (09/17/2003), Extraction of wisdom tooth, Hysteroscopy. Discharge Vitals Temperature (Temporal Artery) 36.8 ???C Heart Rate (Peripheral) 77 Respiratory Rate 16 Blood Pressure 126/80 Height 160 cm Height 63 in Weight 81.3 kg Weight 179.236 lb BMI 31.76 What to do next You Need to Schedule the Following Appointments Follow Up with ELIAS ROSARIO PA-C, TIMOTHY When: In 3 months Where: [address] [place] [address] Medications What How Much When Instructions New solifenacin (Vesicare 5 mg Tab) 1 Tablets By Mouth Every day Duration: 30 Days Pickup at [facility] Pharmacy Information [facility]: [address] [place], [place] [id number] [phone] Allergies propoxyphene (Unknown) Problems Ongoing - Any problem that you are currently receiving treatment for. Chronic pain Essential hypertension Herpes simplex Irregular periods Moderate major depression, single episode Mycosis Obstructive sleep apnea syndrome Stress incontinence Subacute vaginitis. Urgent desire to urinate Urinary incontinence Uterine leiomyoma Patient Survey You may receive a survey via text or e-mail asking about your office visit. Please share your experience with us by completing your survey. We appreciate your feedback and thank you for choosing us for your care. Education Materials Overactive Bladder, Adult Overactive bladder is a condition in which a person has a sudden and frequent need to urinate. A person might also leak urine if he or she cannot get to the bathroom fast enough (urinary incontinence). Sometimes, symptoms can interfere with work or social activities. What are the causes? Overactive bladder is associated with poor nerve signals between your bladder and your brain. Your bladder may get the signal to empty before it is full. You may also have very sensitive muscles that make your bladder squeeze too soon. This condition may also be caused by other factors, such as: ??? Medical conditions: ? Urinary tract infection. ? Infection of nearby tissues. ? Prostate enlargement. ? Bladder stones, inflammation, or tumors. ? Diabetes. ? Muscle or nerve weakness, especially from these conditions: ? A spinal cord injury. ? Stroke. ? Multiple sclerosis. ? Parkinson's disease. ??? Other causes: ? Surgery on the uterus or urethra. ? Drinking too much caffeine or alcohol. ? Certain medicines, especially those that eliminate extra fluid in the body (diuretics). ? Constipation. What increases the risk? You may be at greater risk for overactive bladder if you: ??? Are an older adult. ??? Smoke. ??? Are going through menopause. ??? Have prostate problems. ??? Have a neurological disease, such as stroke, dementia, Parkinson's disease, or multiple sclerosis (MS). ??? Eat or drink alcohol, spicy food, caffeine, and other things that irritate the bladder. ??? Are overweight or obese. What are the signs or symptoms? Symptoms of this condition include a sudden, strong urge to urinate. Other symptoms include: ??? Leaking urine. ??? Urinating 8 or more times a day. ??? Waking up to urinate 2 or more times overnight. How is this diagnosed? This condition may be diagnosed based on: ??? Your symptoms and medical history. ??? A physical exam. ??? Blood or urine tests to check for possible causes, such as infection. You may also need to see a health care provider who specializes in urinary tract problems. This is called a urologist. How is this treated? Treatment for overactive bladder depends on the cause of your condition and whether it is mild or severe. Treatment may include: ??? Bladder training, such as: ? Learning to control the urge to urinate by following a schedule to urinate at regular intervals. ? Doing Kegel exercises to strengthen the pelvic floor muscles that support your bladder. ??? Special devices, such as: ? Biofeedback. This uses sensors to help you become aware of your body's signals. ? Electrical stimulation. This uses electrodes placed inside the body (implanted) or outside the body. These electrodes send gentle pulses of electricity to strengthen the nerves or muscles that control the bladder. ? Women may use a plastic device, called a pessary, that fits into the vagina and supports th (more content not included)... Normal [facility] Urology Office/Clinic Noteon 11-20-2024 Urology Office/Clinic Note Urology Office/Clinic Note Chief Complaint New patient [facility] Staff 49 year old female new patient referred for UUI for 1 year. Wears a panty liner, changes it twice daily. Has stress incontinence with laughing, coughing. Denies dysuria, denies hematuria, sometimes has lower back pain. Denies abdominal pain BBSQ: 21 PVR: 0 ml Review of Systems PHQ Score Initial Depression Screen Score: 2 SCORE no fever, chills, malaise, myalgia. no abdominal pain, nausea, vomiting. Physical Exam Vitals & Measurements T: 36.8 ???C(Temporal Artery) HR: 77(Peripheral) RR: 16 BP: 126/80 HT: 160 cm HT: 63 in WT: 179.236 lb WT: 81.3 kg BMI: 31.76 General: nontoxic, NAD Assessment/Plan 1. Urge incontinence (N39.41: Urge incontinence) 2 panty liners daily. Severe urgency. UA completed in office today shows no microhematuria or signs of infection. PVR low Contributing factors: DM - No Frequent UTIs - No Medications (Psych, Diuretics, etc) - No Dietary - Denies significant intake of bladder irritants Bowel issues - No Mobility limitations - No Discussed tx options: Medication management includes anticholinergics and beta-3 agonists. Beta-3???s (Myrbetriq/Gemtesa) are often preferable due to lower side effect profile, but most insurances won???t cover without trying anticholinergics first. Pt already failed Oxybutynin about 3 yrs ago. Says it didn't help at all. Therefore we will start with Vesicare/solifenacin5 mg. Pt will start with lowest daily dose and slowly titrate up as pt tolerates. She will call in 1 mo with update and we can increase to 10mg if needed. I explained the most common side effects are dry mouth, dry eyes, and constipation. We discussed OTC options to help with these side effects. Pt will stop medication and call office if side effects become intolerable. We did discuss that there is a documented potential side effect of mental status changes/confusion in the elderly, but that this risk is quite low. Pt and I agree that potential benefit outweigh risk at this time. If fails second anticholinergic, we can consider Mrybetriq/Gemtesa. If fails Beta-3, we cannot get it covered, or we get it covered but it???s a cost-prohibitive co-pay then we will consider next steps which could include cysto, urodynamics, Botox, SNM. Ordered: Body Mass Index (BMI) documented 3008F Current tobacco non-user 1036F Depression Screening Negative 3352F E&M of New Patient Moderate 45-59 Min 51764 Influenza immunization status assessed 1030F Medication list documented in medical record 1159F Most recent diastolic blood pressure 80-89 mm Hg 3079F Review of all meds by a prescribing practitioner or clinical pharmacist documented in EHR 1160F Systolic BP <130 mm Hg (Most Recent) 3074F Urnls Dip Stick Auto w/o Microscopy POC 18778 2. Stress incontinence (N39.3: Stress incontinence (female) (male)) MURTAZA << UUI Pt aware this will not change/improve w med (see #1). Recommended PFPT. Pt provided printed pt education and will attempt at home. Orders: solifenacin, 5 mg = 1 tab(s), Oral, Daily, X 30 day(s), # 30 tab(s), Refills(s) 0, Pharmacy: [facility], 160, cm, 11/20/24 10:56:00 EDT, Height/Length Dosing, 81.3, kg, 11/20/24 10:56:00 EDT, Weight Dosing Follow-up With When Contact Information MARLENE BRADLEY, ELIAS Amador, URL In 3 months [address] [facility] [place] [address] Additional Instructions: Patient Education Overactive Bladder, Adult Problem List/Past Medical History Ongoing Chronic pain Essential hypertension Herpes simplex Irregular periods Moderate major depression, single episode Mycosis Obstructive sleep apnea syndrome Subacute vaginitis. Urgent desire to urinate Urinary incontinence Uterine leiomyoma Historical No qualifying data Procedure/Surgical History Salpingectomy for tubal ectopic by abdominal approach (09/17/2003), Extraction of wisdom tooth, Hysteroscopy. Medications Vesicare 5 mg Tab, 5 mg= 1 tab(s), Oral, Daily Allergies propoxyphene (Unknown) Social History Alcohol Current, 1-2 times per month, 11/20/2024 Substance Abuse Never., 11/19/2024 Tobacco Never (less than 100 in lifetime) Tobacco Use:. Never Smokeless Tobacco Use:., 11/20/2024 Family History Hypertension: Mother. Primary malignant neoplasm of lung: Father. Immunizations Vaccine Date Status Comments SARS-CoV-2 (COVID-19) mRNA BNT-162b2 vax 06/08/2021 Recorded 2024-11-20: TPV40 SARS-CoV-2 (COVID-19) mRNA BNT-162b2 vax 11/11/2020 Recorded SARS-CoV-2 (COVID-19) mRNA BNT-162b2 vax 10/21/2020 Recorded diphtheria/pertussis, acel/tetanus adult 11/02/2016 Recorded Lab Results Ambulatory Point of Care Results Bilirubin Urine Dipstick: 2+ Moderate (11/20/24 10:50:00) Blood Urine Dipstick: Trace-intact (11/20/24 10:50:00) Glucose Urine Dipstick: Negative (11/20/24 10:50:00) Ketones Urine Dipstick: 1+ 15 mg/dl (11/20/24 10:50:00) Leuko (more content not included)... [facility] Comment on above: Result Comment: Elec tronically Signed By: MARLENE BRADLEY, ELIAS Fordbr\Date and Time Signed: 11/20/24 11:36 EDT IGP,APTIMA HPV,AGE GDLNon AGE GDLN ACOG TESTING Note . [facility] Comment on above: TESTS RESULT FLAG UN ITS REF RANGE LAB Clinician Provided Cytology Information Source.............Cervix;Endocervix No. of containers..01 ThinPrep Vial Age Algo ACOG Estella... 64 01 FLAG LEGEND: L-Low Normal,H-High Normal,LL-Alert Low,HH-Alert High <-Panic Low,>-Panic High,A-Abnormal,AA-Critical Abnormal Performed at: 01 =[facility] [place] [place] [address] Dalia Ann MD, HPV APTIMA Positive Abnormal Negative [facility] Comment on above: This nucleic acid am plification test detects fourteen high- risk HPV types (16,18,31,33,35,39,45,51,52,56,58,59,66,68) without differentiation. HPV GENOTYPE 16 Negative Negative [facility] HPV GENOTYPE 18,45 Negative Negative [facility] Comment on above: Performed at: =G - L [facility] [address] [id number] Foster Care Worker: Dalia Ann MD, Phone: [phone] Performed at: WB - [facility] [id number] Foster Care Worker: Dalia Ann MD, Phone: [phone] IGP, APTIMA HPV, RFX 16/18,45 Note . [facility] Comment on above: TESTS RESULT FLAG UN ITS REF RANGE LAB DIAGNOSIS: 02 NEGATIVE FOR INTRAEPITHELIAL LESION OR MALIGNANCY. Specimen adequacy: 02 Satisfactory for evaluation. Endocervical and/or squamous metaplastic cells (endocervical component) are present. Performed by: Wale Dale, Director Of Casework (ASCP) . 02 Note: Note 02 The Pap smear is a screening test designed to aid in the detection of premalignant and malignant conditions of the uterine cervix. It is not a diagnostic procedure and should not be used as the sole means of detecting cervical cancer. Both false-positive and false-negative reports do occur. Test Methodology: Note 02 This liquid based ThinPrep(R) pap test was screened with the use of an image guided system. HPV Genotype Reflex Note 02 Criteria met, see HPV Genotype results. FLAG LEGEND: L-Low Normal,H-High Normal,LL-Alert Low,HH-Alert High <-Panic Low,>-Panic High,A-Abnormal,AA-Critical Abnormal Performed at: [address] [address] Dalia Ann MD, Interpretation and review of laboratory results Abnormal [facility] Healthcare BRUSH-SPATULA CERVIX ENDOCERVIX [facility] URETHRITIS/DISCHARGE PLUS VA GINITIS (HTRX)on 04-25-2024 ATOPOBIUM VAGINAE 0.000 [facility] ATOPOBIUM VAGINAE Not detected [facility] Healthcare BVAB 2,3 (BACTERIAL VAGINOSIS ASSOCIATED BACTERIA 2, 3); MOBILUNCUS SPP 0.000 [facility] BVAB 2,3 (BACTERIAL VAGINOSIS ASSOCIATED BACTERIA 2, 3); MOBILUNCUS SPP Not detected [facility] KHADIJAH ALBICANS, PARAPSILOSIS, TROPICALIS 0.000 [facility] KHADIJAH ALBICANS, PARAPSILOSIS, TROPICALIS Not detected [facility] Healthcare KHADIJAH GLABRATA 0.000 [facility] KHADIJAH GLABRATA Not detected [facility] KHADIJAH KRUSEI 0.000 [facility] Healt hcare KHADIJAH KRUSEI Not detected [facility] CHLAMYDIA TRACHOMATIS 0.000 [facility] CHLAMYDIA TRACHOMATIS Not detected [facility] Healthcare ERMB, C; MEFA 20.524 Abnormal [facility] Health care ERMB, C; MEFA Detected Abnormal [facility] care GARDNERELLA VAGINALIS 20.351 Abnormal [facility] Healthcare GARDNERELLA VAGINALIS Detected Abnormal [facility] Healthcare Interpretation and review of laboratory results Abnormal [facility] Healthcare MEGASPHAERA (TYPES 1, 2) 0.000 [facility] MEGASPHAERA (TYPES 1, 2) Not detected [facility] Healthcare MYCOPLASMA GENITALIUM 0.000 [facility] MYCOPLASMA GENITALIUM Not detected [facility] NEISSERIA GONORRHOEAE 0.000 [facility] NEISSERIA GONORRHOEAE Not detected [facility] Healthcare TET B, TET M 19.517 Abnormal [facility] are TET B, TET M Detected Abnormal [facility] are TRICHOMONAS VAGINALIS 0.000 [facility] TRICHOMONAS VAGINALIS Not detected [facility] PAP ACOG PANEL 2: 30 to 65on 04-26-2022 . . Normal [facility] Comment on above: Result Comment: Perf ormed at: WB Performed By: #### [id number] #### [facility] [address] [place] [address] Dr. Lois Roberts Age Gdln ACOG Testing 30-65 Normal [facility] Comment on above: Performed By: #### [id number] #### [facility] [address] [address] [address] Lois Roberts DIAGNOSIS: Comment Normal [facility] Comment on above: Result Comment: NEGA TIVE FOR INTRAEPITHELIAL LESION OR MALIGNANCY. Performed at: WB Performed By: #### [id number] #### [facility] [address] [place] [address] Dr. Lois Roberts HPV Aptima Negative Normal Negative [facility] Comment on above: Result Comment: This nucleic acid amplification test detects fourteen high-risk HPV types (16,18,31,33,35,39,45,51,52,56,58,59,66,68) without differentiation. Performed at: =G Performed By: #### [id number] #### [facility] [address] [place] [address] Dr. Lois Roberts Methodology: Comment Normal [facility] Comment on above: Result Comment: This liquid based ThinPrep(R) pap test was screened with the use of an image guided system. Performed at: WB Performed By: #### [id number] #### [facility] [address] [place] [address] Dr. Lois Roberts Note: Comment Normal [facility] Comment on above: Result Comment: The Pap smear is a screening test designed to aid in the detection of premalignant and malignant conditions of the uterine cervix. It is not a diagnostic procedure and should not be used as the sole means of detecting cervical cancer. Both false-positive and false-negative reports do occur. . Performed at: WB Performed By: #### [id number] #### [facility] [address] [address] [address] Lois Roberts Performed by: Comment Normal [facility] Comment on above: Result Comment: Laura Riley, Director Of Casework (ASCP) Performed at: WB Performed By: #### [id number] #### [facility] [address] [place], [place] [address] Dr. Lois Roberts Specimen adequacy: Comment Normal [facility] Comment on above: Result Comment: Sati sfactory for evaluation. Endocervical and/or squamous metaplastic cells (endocervical component) are present. Performed at: WB Performed By: #### [id number] #### [facility] [address] [address] [address] Lois Roberts MG MAMM SCREEN 3D WENCESLAO CADon 04-22-2022 MG MAMM SCREEN 3D WENCESLAO CAD Patient: JAGDISH VIVAS I. Exam Date: 04/22/2022 : 1975 Gender:F Ordering : DR CARLEE SCHUMACHRE . Admission #: [id number] Family : Order #: [id number] CLICK HERE TO VIEW EXAM RADIOLOGY REPORT PROCEDURE: MAMMOGRAM SCREENING 3D BILATERAL CAD COMPARISON: MG MAMM RT DIAG FU, 11/23/2016. MG MAMM SCREEN 3D WENCESLAO CAD, 03/09/2021. INDICATIONS: Screening mammography Calculator Name NCI Breast Cancer Risk Assessment Tool 5 Year Breast Cancer Risk 1.00% Lifetime Breast Cancer Risk 9.00% Personal Breast Cancer No Personal Ovarian Cancer No Treatments None Family Cancers None LOCATION: [facility] BREAST COMPOSITION: Heterogeneously dense,which may obscure small masses. FINDINGS: DIAGNOSTIC CATEGORY 2--BENIGN FINDING. NO CHANGE FROM COMPARISON. Scattered benign-appearing nodules are present. Scattered benign-appearing calcifications are present. Scattered benign-appearing lymph nodes are present. RIGHT BREAST: No significant suspicious finding. LEFT BREAST: No significant suspicious finding. RECOMMENDATIONS: ROUTINE MAMMOGRAM AND CLINICAL EVALUATION IN 12 MONTHS. PLEASE NOTE: A NORMAL MAMMOGRAM DOES NOT EXCLUDE THE POSSIBILITY OF BREAST CANCER. A CLINICALLY SUSPICIOUS PALPABLE LUMP SHOULD BE BIOPSIED. Dictated by: Kelly Cleary MD on 04/23/2022 at 07:55 Approved by: Kelly Cleary MD on 04/23/2022 at 07:57 Normal [facility] US PELVIS AND TRANSVAGon US PELVIS AND TRANSVAG EXAMINATION: US PELVIS AND TRANSVAG HISTORY: Pelvic and perineal pain ; bilateral pelvic pain for 6 months COMPARISON: Ultrasound pelvis 12/21/2013 TECHNIQUE: Transabdominal and transvaginal sonographic examination. FINDINGS: UTERUS: 1.5 cm rounded hypoechoic area within the fundal myometrium favoring a leiomyoma. Rounded heterogeneous 3.2 cm mass containing coarse calcification within right uterine myometrium, likely a leiomyoma. Uterus size: 8.6 x 5.5 x 8.2 cm ENDOMETRIUM: Normal homogeneous appearance. Endometrial thickness: 9 mm RIGHT OVARY: Normal size and appearance. Duplex Doppler demonstrates normal waveform and flow; resistive index 0.6. Ovary size: 2.6 x 2.2 x 1.1 cm LEFT OVARY: Normal size and appearance. Duplex Doppler demonstrates normal waveform and flow; resistive index 0.4. Ovary size: 2.4 x 1.2 x 1.2 cm CUL-DE-SAC: Unremarkable. No significant free fluid. BLADDER: Unremarkable. OTHER: Prominent vessels within right adnexa. IMPRESSION: 1. 2 separate masses within the uterine myometrium, largest is 3.2 cm; both are suspected to represent leiomyomas. 2. Unremarkable ovaries. 3. Slightly prominent right parauterine vessels; nonspecific. Electronically authenticated by: KEILA BHAKTA Date: 2022-04-22 12:03 Normal [facility] Complete Blood Count with Au to Diffon 11-03-2021 Basophils (Bld) [#/Vol] 0.03 10*3/uL Normal 0.00-0.20 [facility] Tele[facility] Lineman Comment on above: Performed By: #### C BCAD, TSH reflex FT4 #### [facility] [address], [place] [id number] Basophils/100 WBC (Bld) 0.4 % Normal [facility] Comment on above: Performed By: #### C BCAD, TSH reflex FT4 #### [facility] [address], [place] [id number] Eosinophils (Bld) [#/Vol] 0.09 10*3/uL Normal 0.02-0.50 [facility] Comment on above: Performed By: #### C BCAD, TSH reflex FT4 #### [facility] [address] [place], [place] [id number] Eosinophils/100 WBC (Bld) 1.3 % Normal [facility] Specialist Comment on above: Performed By: #### C BCAD, TSH reflex FT4 #### [facility] [address], [place] [id number] Erythrocyte distribution width (RBC) [Ratio] 13.9 % Normal 11.0-15.0 [facility] Specialist Comment on above: Performed By: #### C BCAD, TSH reflex FT4 #### [facility] [address], [place] [id number] Hematocrit (Bld) [Volume fraction] 40.3 % Normal 35.0-47.0 [facility] Special[facility] Comment on above: Performed By: #### C BCAD, TSH reflex FT4 #### [facility] [address], [place] [id number] Hemoglobin (Bld) [Mass/Vol] 12.5 g/dL Normal 11.6-15.5 [facility] Special[facility] Comment on above: Performed By: #### C BCAD, TSH reflex FT4 #### [facility] [address], [place] [id number] Lymphocytes (Bld) [#/Vol] 1.8 10*3/uL Normal 0.9-3.9 [facility] Comment on above: Performed By: #### C BCAD, TSH reflex FT4 #### [facility] [address], [place] [id number] Lymphocytes/100 WBC (Bld) 26.5 % Normal [facility] Specialist Comment on above: Performed By: #### C BCAD, TSH reflex FT4 #### [facility] [address], [place] [id number] MCH (RBC) [Entitic mass] 25.5 pg Low 27.0-33.0 [facility] Comment on above: Performed By: #### C BCAD, TSH reflex FT4 #### [facility] [address], [place] [id number] MCHC (RBC) [Mass/Vol] 31.0 g/dL Low 32.0-36.0 [facility] Comment on above: Performed By: #### C BCAD, TSH reflex FT4 #### [facility] [address], [place] [id number] MCV (RBC) [Entitic vol] 82 fL Normal 80-100 [facility] Specialist Comment on above: Performed By: #### C BCAD, TSH reflex FT4 #### [facility] [address], [place] [id number] Monocytes (Bld) [#/Vol] 0.5 10*3/uL Normal 0.2-0.9 [facility] Specialist Comment on above: Performed By: #### C BCAD, TSH reflex FT4 #### [facility] [address], [place] [id number] Monocytes/100 WBC (Bld) 7.0 % Normal [facility] Comment on above: Performed By: #### C BCAD, TSH reflex FT4 #### [facility] [address], [place] [id number] Neutrophils (Bld) [#/Vol] 4.3 10*3/uL Normal 1.5-7.8 [facility] Comment on above: Performed By: #### C BCAD, TSH reflex FT4 #### [facility] [address], [place] [id number] Neutrophils/100 WBC (Bld) 64.7 % Normal [facility] Comment on above: Performed By: #### C BCAD, TSH reflex FT4 #### [facility] [address], [place] [id number] Platelet mean volume (Bld) [Entitic vol] 11.20 fL Normal 7.50-12.50 [facility] Comment on above: Performed By: #### C BCAD, TSH reflex FT4 #### [facility] [address], [place] [id number] Platelets (Bld) [#/Vol] 369 10*3/uL Normal 140-400 [facility] Specialist Comment on above: Performed By: #### C BCAD, TSH reflex FT4 #### [facility] [address], [place] [id number] RBC (Bld) [#/Vol] 4.90 10*6/uL Normal 3.90-5.20 [facility] Specialist Comment on above: Performed By: #### C BCAD, TSH reflex FT4 #### [facility] [address], [place] [id number] RDW-SD 41.5 fL Normal 37.0-50.0 [facility] Comment on above: Performed By: #### C BCAD, TSH reflex FT4 #### [facility] [address], [place] [id number] WBC (Bld) [#/Vol] 6.7 10*3/uL Normal 3.8-11.0 [facility] Specialist Comment on above: Performed By: #### C BCAD, TSH reflex FT4 #### [facility] [address], [place] [id number] TSH w/ Reflex to Free T4on 0 11-03-2021 TSH 0.652 uIU/mL Normal 0.400-4.500 [facility] Telephone Lineman Comment on above: Performed By: #### C BCAD, TSH reflex FT4 #### [facility] [address], [place] [id number] XR Chest 2 Views*on 08-20-19 22 XR Chest 2 Views* HISTORY: Cough FINDINGS: Diffuse increase in interstitial markings are present, possibly representing interstitial pneumonia. (Minimal peripheral consolidation) No alveolar infiltrate, hilar/mediastinal lymphadnenopathy pulmonary edema or pleural effusions are seen. Cardiac silhouette size is normal. Skeletal structures are unremarkable. IMPRESSION: Diffuse interstitial prominence, no parenchymal consolidation, lymphadenopathy or pulmonary edema. Findings can be consistent with an interstitial (viral) pneumonia and/or post-inflammatory sequela, specifically COVID. Report reported and signed by Demarco Aguillon on 08/24/2021 0912 Normal [facility] Covid-19 PCR (CVDTB)on 06-25 SARS-CoV-2 (COVID-19) RNA TAMEKA+probe Ql (Unsp spec) Not detected Normal NOT DETECTED [facility] Comment on above: Result Comment: This test is not yet approved or cleared by the [place] FDA. When there are no FDA-approved or cleared tests available, and other criteria are met, FDA can make tests available under an emergency access mechanism called an Emergency Use Authorization (EUA). The EUA for this test is supported by the [place] of Health and Human Service's (HHS's) declaration that circumstances exist to justify the emergency use of in vitro diagnostics for the detection and/or diagnosis of the virus that causes COVID-19. This EUA will remain in effect (meaning this test can be used) for the duration of the COVID-19 declaration justifying emergency of IVDs, unless it is terminated or revoked by FDA (after which the test may no longer be used). When diagnostic testing is negative, the possibility of a false negative should be considered in the context of a patient's recent exposures and the presence of clinical signs and symptoms consistent with SARS-CoV-2. Performed By: #### C [facility] #### [facility] [address] [place] [address] Dr. Lois Roberts Vital Signs Date Time Vital Sign Value Performing Clinician Jani delgado 11-12-2024 14:01-0400 Body mass index (BMI) [Ratio] 30.06 kg/m2 Alessia DIAZ Work Phone: [facility] 11-12-2024 14:01-0400 Body weight 84.48 kg Alessia Veloz PA Work Phone: [facility] 11-12-2024 14:01-0400 Diastolic blood pressure 90 mm[Hg] Alessia Veloz PA Work Phone: [facility] 11-12-2024 14:01-0400 Systolic blood pressure 130 mm[Hg] Alessia Veloz PA Work Phone: [facility] 08-20-2024 11:49-0500 Body mass index (BMI) [Ratio] 30.8 kg/m2 Alessia Veloz PA Work Phone: [facility] 08-20-2024 11:49-0500 Body weight 86.55 kg Alessia Veloz PA Work Phone: [facility] 08-20-2024 11:49-0500 Diastolic blood pressure 80 mm[Hg] Alessia Veloz PA Work Phone: [facility] 08-20-2024 11:49-0500 Systolic blood pressure 140 mm[Hg] Alessia Veloz PA Work Phone: [facility] 05-21-2024 12:04-0400 Body height 167.6 cm Alessia Veloz PA Work Phone: [facility] 05-21-2024 12:04-0400 Body mass index (BMI) [Ratio] 30.34 kg/m2 Alessia Nidhi PA Work Phone: [facility] 05-21-2024 12:04-0400 Body weight 85.28 kg Alessia Veloz PA Work Phone: [facility] 05-21-2024 12:04-0400 Diastolic blood pressure 82 mm[Hg] Alessia Veloz PA Work Phone: [facility] 05-21-2024 12:04-0400 Systolic blood pressure 122 mm[Hg] Alessia Veloz PA Work Phone: [facility] 04-23-2024 13:47-0400 Body mass index (BMI) [Ratio] 30.86 kg/m2 Carlee Endy DO Work Phone: [facility] 04-23-2024 13:47-0400 Body weight 86.73 kg Carlee Endy DO Work Phone: [facility] 04-23-2024 13:47-0400 Diastolic blood pressure 72 mm[Hg] Carlee Endy DO Work Phone: [facility] 04-23-2024 13:47-0400 Systolic blood pressure 122 mm[Hg] Carele Endy DO Work Phone: [facility] Healthcare Encounters Encounter Date Encounter Type Care Provider Facility Start: 03-28-2025 End: 03-28-2025 ambulatory Yumi Tejeda Facility:[facility] Start: 03-28-2025 End: 03-28-2025 Patient encounter procedure Yumi Tejeda [facility] Start: 11-20-2024 End: 11-20-2024 ambulatory ELIAS ROSARIO Facility:[facility] Start: 11-12-2024 End: 11-12-2024 Bamboo flowsheet Alessia DIAZ Work Phone: [facility] Start: 11-12-2024 End: 11-12-2024 Bamboo flowsheet Alessia Veloz PA Work Phone: [facility] Start: 11-12-2024 End: 11-12-2024 ambulatory ALESSIA VELOZ Not Available Start: 11-12-2024 End: 11-12-2024 Office outpatient visit 15 minutes Alessia DIAZ Work Phone: [facility] Comment on above: Encounter for weight management; Yeast infection; Bacterial vaginosis; Stress incontinence of urine Start: 08-20-2024 End: 08-20-2024 Bamboo flowsheet Alessia DIAZ Work Phone: [facility] Start: 08-20-2024 End: 08-20-2024 Bamboo flowsheet Alessia DIAZ Work Phone: [facility] Start: 08-20-2024 End: 08-20-2024 ambulatory ALESSIA VELOZ Not Available Start: 08-20-2024 End: 08-20-2024 Office outpatient visit 15 minutes Alessia DIAZ Work Phone: [facility] Comment on above: Encounter for weight management Start: 06-20-2024 End: 06-20-2024 Refill Josefina Farias MD Work Phone: [facility] Comment on above: Bacterial vaginitis (Primary Dx) Start: 05-29-2024 End: 05-29-2024 ambulatory ELIAS ROSARIO Facility:[facility] Start: 05-29-2024 End: 05-29-2024 Patient encounter procedure ELIAS ROSARIO [facility] Start: 05-21-2024 End: 05-21-2024 Bamboo flowsheet Alessia DIAZ Work Phone: [facility] Start: 05-21-2024 End: 05-21-2024 Bamboo flowsheet Alessia Veloz PA Work Phone: [facility] Start: 05-21-2024 End: 05-21-2024 ambulatory ALESSIA VELOZ Not Available Start: 05-21-2024 End: 05-21-2024 Office outpatient visit 5 minutes Alessia Veloz PA Work Phone: [facility] Comment on above: Encounter for weight management Start: 04-24-2024 ambulatory Yumi Kyisael Facility: [facility] Start: 04-23-2024 End: 04-23-2024 Bamboo flowsheet Carlee Endy DO Work Phone: [facility] Start: 04-23-2024 End: 05-01-2024 Clinisync Result Encounter Carlee Endy DO Work Phone: [facility] Unsolicited Start: 04-23-2024 End: 04-25-2024 External Result Encounter Carlee Endy DO Work Phone: [facility] Start: 04-23-2024 End: 05-01-2024 External Result Encounter Carlee Endy DO Work Phone: [facility] Start: 04-23-2024 End: 04-23-2024 ambulatory CARLEE ENDY Not Available Start: 04-23-2024 End: 04-23-2024 Patient encounter procedure Carlee Endy DO Work Phone: [facility] Work Phone: Start: 04-23-2024 End: 04-23-2024 Periodic preventive med est patient 40-64yrs Carlee Endy DO Work Phone: [facility] Comment on above: Well woman exam with routine gynecological exam; Breast cancer screening by mammogram; Encounter for weight management; Urinary urgency; Mixed stress and urge urinary incontinence; Uterine leiomyoma, unspecified location; HSV infection Start: 04-22-2022 End: 04-23-[address] DOCTOR VILLA Facility: Start: 04-19-2022 End: 04-19-[address] DOCTOR VILLA Facility:[facility] Start: 07-15-2021 End: 07-15-2021 ambulatory DENNIS MARLON Facility:[facility] Procedures Date Procedure Procedure Detail Performing Clinician Start: 04-23-2024 URETHRITIS/DISCHARGE PLUS VAGINITIS (HTRX) Carlee Schumacher DO Work Phone: Start: 04-23-2024 IGP,APTIMA HPV,AGE GDLN Carlee Schumacher DO Work Phone: Start: 04-23-2024 Microscopic observat ion [Identifier] in Cervix by Cyto stain Alessia DIAZ Work Phone: Start: 05-05-2023 Mammography Carlee singh DO Work Phone: Start: 09-17-2003 Salpingectomy for tu bal ectopic by abdominal approach [facility] Extraction of wisdom tooth A urora [employer] Hysteroscopy [facility] Plan of Treatment Date Care Activity Detail Author Start: 04-23-2027 Screening for malignant neoplasm of cervix [facility] Start: 04-25-2025 End: 04-25-2025 Patient encounter procedure [facility] Start: 03-25-2025 Influenza vaccination Influenz a Vaccine (Season Ended) [facility] Start: 02-04-2025 End: 02-04-2025 Patient encounter procedure 02/04/2025 4:00 PM EDT Office Visit [facility] [address] [place] [address] Alessia Veloz PA [address] [place] [address] [facility] Start: 11-12-2024 End: 11-12-2024 Patient encounter procedure 11/12/2024 1:30 PM EDT Office Visit [facility] [address] [place] [address] Alessia Veloz PA [address] [place] [address] [facility] Start: 08-20-2024 End: 08-20-2024 Patient encounter procedure 08/20/2024 11:30 AM EST Office Visit [facility] [address] [place] [phone] Alessia Veloz, PA [address] [place], [place] [id number] [facility] Start: 05-21-2024 End: 05-21-2024 Patient encounter procedure 05/21/2024 11:40 AM EDT Office Visit [facility] [address] [place] [phone] Alessia Veloz, PA [address] [place], [place] [id number] [facility] Start: 05-05-2024 Screening for malignant neoplasm of breast Mammogram [facility] Start: 04-23-2024 End: 06-23-2025 MG Breast - bilateral Screening Bilateral screening mammogram Imaging Routine Breast cancer screening by mammogram Expected: 04/23/2024 (Approximate), Expires: 06/23/2025 [facility] Work Phone: Comment on above: Expected: 04/23/2024 (Approximate), Expires: 06/23/2025 Start: 04-23-2024 End: 04-23-2025 US for US PELVIS-TRANSVAG IF INDICATED Imaging Routine Uterine leiomyoma, unspecified location Expected: 04/23/2024 (Approximate), Expires: 04/23/2025 [facility] Comment on above: Expected: 04/23/2024 (Approximate), Expires: 04/23/2025 Start: 03-25-2024 Influenza vaccination Influenza Vacc ine (#1) [facility] Start: 2004 Screening for malignant neoplasm of cervix [facility] Start: 10-24-1995 Screening for malignant neoplasm of cervix Pap Smear [facility] Start: 1975 Screening for malignant neoplasm of colon [facility] THIN PREP TIS PAP AN D HR HPV DNA THIN PREP TIS PAP AND HR HPV DNA Pathology and Cytology Routine Well woman exam with routine gynecological exam Ordered: 04/23/2024 [facility] Comment on above: Ordered: 04/23/2024 Immunizations Immunization Date Immunization Notes Care Provider Marquez medina 06-08-2021 SARS-CoV-2 (COVID-19 ) mRNA BNT-162b2 [employer] [facility] Comment on above: Result Comment: 2024: [id number] 11-11-2020 SARS-CoV-2 (COVID-19 ) mRNA BNT-162b2 vax [employer] [facility] 10-21-2020 SARS-CoV-2 (COVID-19 ) mRNA BNT-162b2 [employer] [facility] 11-02-2016 tetanus toxoid, redu lele diphtheria toxoid, and acellular pertussis vaccine, adsorbed Carleeimelda Schumacher DO Work Phone: [facility] Healthcare Payers Date Payer Category Payer Medicaid [id number] 2019 Medicaid (Managed Care) [facility] MEDICAID [id number] 1975 Unknown [id number]. 593 1975 Unknown [id number] [id number]. 593 1975 Unknown [id number] [id number]. 593 1975 Unknown [id number] 2.16.840.1.511840.3.579.2. 9 1975 Unknown [id number] 2.16.840.1.616527.3.579.2. 9 1975 Unknown [id number] 2.16.840.1.294175.3.579.2. 9 1975 Unknown [id number] 2.16.840.1.061064.3.579.2. 9 1975 Unknown [id number] 2.16.840.1.049938.3.579.2. 727 1974 Unknown [id number] 2.16.840.1.574571.3.579.2. 727 1974 Unknown [id number] [id number]. 727 1974 Unknown [id number] [id number]. 727 1959 Unknown [id number] Social History Date Type Detail Facility Start: 04-07-2023 End: 11-20-2024 Tobacco smoking status [facility] Never smoked tobacco [facility] Start: 04-07-2023 Tobacco use and exposure Smokeless tobacco non-user [facility] Start: 04-23-2024 End: 08-20-2024 Alcoholic beverage intake Current drinker of alcohol (finding) [facility] Start: 05-06-2023 End: 04-23-2024 Alcoholic beverage intake [facility] Start: 05-06-2023 End: 07-27-2023 Tobacco use panel [facility] Start: 04-07-2023 Alcohol Comment Alcohol: 1 or 2 drinks on a typical day / 2 to 4 times a month. Caffeine: 1-2 cups/day soda, tea [facility] Start: 1975 Sex assigned at Not on file [facility] Tobacco smoking status [facility] Tobacco smoking status Never [facility] Sex Female (finding) [facility] Clinical Notes 04-23-2024 to 11-20-2024 Natalia Zheng LPN - 11/12/2024 1:30 PM JOE Keller - 08/20/2024 11:30 AM Deshawn Cortez - 05/21/2024 11:40 AM Jonas Zheng LPN - 04/23/2024 1:00 PM EDT Note Date & Type Note Facility 11-20-2024 Note Patient Education Obstetrics and Gynecology Overactive Bladder, Adult Overactive bladder is a condition in which a person has a sudden and frequent need to urinate. A person might also leak urine if he or she cannot get to the bathroom fast enough (urinary incontinence). Sometimes, symptoms can interfere with work or social activities. What are the causes? Overactive bladder is associated with poor nerve signals between your bladder and your brain. Your bladder may get the signal to empty before it is full. You may also have very sensitive muscles that make your bladder squeeze too soon. This condition may also be caused by other factors, such as: ??? Medical conditions: ? Urinary tract infection. ? Infection of nearby tissues. ? Prostate enlargement. ? Bladder stones, inflammation, or tumors. ? Diabetes. ? Muscle or nerve weakness, especially from these conditions: ? A spinal cord injury. ? Stroke. ? Multiple sclerosis. ? Parkinson's disease. ??? Other causes: ? Surgery on the uterus or urethra. ? Drinking too much caffeine or alcohol. ? Certain medicines, especially those that eliminate extra fluid in the body (diuretics). ? Constipation. What increases the risk? You may be at greater risk for overactive bladder if you: ??? Are an older adult. ??? Smoke. ??? Are going through menopause. ??? Have prostate problems. ??? Have a neurological disease, such as stroke, dementia, Parkinson's disease, or multiple sclerosis (MS). ??? Eat or drink alcohol, spicy food, caffeine, and other things that irritate the bladder. ??? Are overweight or obese. What are the signs or symptoms? Symptoms of this condition include a sudden, strong urge to urinate. Other symptoms include: ??? Leaking urine. ??? Urinating 8 or more times a day. ??? Waking up to urinate 2 or more times overnight. How is this diagnosed? This condition may be diagnosed based on: ??? Your symptoms and medical history. ??? A physical exam. ??? Blood or urine tests to check for possible causes, such as infection. You may also need to see a health care provider who specializes in urinary tract problems. This is called a urologist. How is this treated? Treatment for overactive bladder depends on the cause of your condition and whether it is mild or severe. Treatment may include: ??? Bladder training, such as: ? Learning to control the urge to urinate by following a schedule to urinate at regular intervals. ? Doing Kegel exercises to strengthen the pelvic floor muscles that support your bladder. ??? Special devices, such as: ? Biofeedback. This uses sensors to help you become aware of your body's signals. ? Electrical stimulation. This uses electrodes placed inside the body (implanted) or outside the body. These electrodes send gentle pulses of electricity to strengthen the nerves or muscles that control the bladder. ? Women may use a plastic device, called a pessary, that fits into the vagina and supports the bladder. ??? Medicines, such as: ? Antibiotics to treat bladder infection. ? Antispasmodics to stop the bladder from releasing urine at the wrong time. ? Tricyclic antidepressants to relax bladder muscles. ? Injections of botulinum toxin type A directly into the bladder tissue to relax bladder muscles. ??? Surgery, such as: ? A device may be implanted to help manage the nerve signals that control urination. ? An electrode may be implanted to stimulate electrical signals in the bladder. ? A procedure may be done to change the shape of the bladder. This is done only in very severe cases. Follow these instructions at home: Eating and drinking ??? Make diet or lifestyle changes recommended by your health care provider. These may include: ? Drinking fluids throughout the day and not only with meals. ? Cutting down on caffeine or alcohol. ? Eating a healthy and balanced diet to prevent constipation. This may include: ? Choosing foods that are high in fiber, such as beans, whole grains, and fresh fruits and vegetables. ? Limiting foods that are high in fat and processed sugars, such as fried and sweet foods. Lifestyle ??? Lose weight if needed. ??? Do not use any products that contain nicotine or tobacco. These include cigarettes, chewing tobacco, and vaping devices, such as e-cigarettes. If you need help quitting, ask your health care provider. General instructions ??? Take [id number] and prescription medicines only as told by your health care provider. ??? If you were prescribed an antibiotic medicine, take it as told by your health care provider. Do not stop taking the antibiotic even if you start to feel better. ??? Use any implants or pessary as told by your health care provider. ??? If needed, wear pads to absorb urine leakage. ??? Keep a log to track how much and when you drink, and whe (more content not included)... [facility] 11-12-2024 History of Present illness Narrative Reason for Appointment: Patient ID: Jagdish Vivas is a 49 y.o. female who presents for Weight Management Patient presents today for Weight Management Consult. MEDICATIONS Current Outpatient Medications Medication Instructions metFORMIN XR (GLUCOPHAGE-XR) 500 mg, Oral, Daily with evening meal, Do not crush, chew, or split. metroNIDAZOLE (FLAGYL) 500 mg, Oral, 2 times daily, Do not drink alcohol while taking this medication phentermine (ADIPEX-P) 37.5 mg, Oral, Daily before breakfast phentermine (ADIPEX-P) 37.5 mg, Oral, Daily before breakfast ALLERGIES Allergies Allergen Reactions Propoxyphene Unknown Darvocet PROBLEMS Active Ambulatory Problems Diagnosis Date Noted Abnormal mammogram 05/06/2023 Abnormal weight gain 05/06/2023 Absence of bladder continence 05/06/2023 Essential hypertension (CMS/HCC) 05/06/2023 Herpes simplex viral infection 05/06/2023 Increased thirst 05/06/2023 Irregular menses 05/06/2023 Major depressive disorder, single episode, moderate (HCC) (CMS/HCC) 05/06/2023 Menometrorrhagia 05/06/2023 Mood disorder (CMS/HCC) 05/06/2023 Obstructive sleep apnea syndrome 05/06/2023 Other chronic pain 05/06/2023 Mixed stress and urge urinary incontinence 05/06/2023 Subacute vaginitis 05/06/2023 Uterine leiomyoma 05/06/2023 Resolved Ambulatory Problems Diagnosis Date Noted No Resolved Ambulatory Problems Past Medical History: Diagnosis Date Abscess Allergies Herpes Miscarriage 1998 Nonsmoker Tubal 2004 Uterine leiomyoma, unspecified location HISTORY PAST MEDICAL HISTORY SOCIAL HISTORY Past Medical History: Diagnosis Date Abscess Allergies Herpes Menometrorrhagia Miscarriage 1998 Nonsmoker Tubal 2004 Uterine leiomyoma, unspecified location Social History [...] removed- right ovary surgically removed done at [place] VAGINAL DELIVERY REVIEW OF SYSTEMS Review of Systems: Review of Systems All other systems reviewed and are negative. OBJECTIVE Objective: Physical Exam Constitutional: Appearance: Normal appearance. She is well-developed. Cardiovascular: Rate and Rhythm: Normal rate and [...] nursing note reviewed. Exam conducted with a roofer vinyl coating present. Vitals: Estimated body mass index is 30.06 kg/m as calculated from the following: Height as of 05/21/24: 5' 6 . Weight as of this encounter: 186 lb 4 oz. BP: 130/90 No LMP recorded. ASSESSMENT & PLAN ICD-10-CM 1. Encounter for weight management Z76.89 phentermine (Adipex-P) 37.5 MG tablet 2. Yeast infection B37.9 fluconazole (Diflucan) 150 MG tablet 3. Bacterial vaginosis N76.0 metroNIDAZOLE (Flagyl) 500 MG tablet B96.89 4. Stress incontinence of urine N39.3 Ambulatory referral to Urology Patient presents today for 3rd Adipex prescription. Patient desires additional weigh loss and she is currently taking metformin along with working out to achieve further results. The possibility of Ozempic for future use has been discussed. Weight and blood pressure has been captured and it has been discussed/reiterated the importance of keeping a food journal, proper nutrition/diet, and exercise regimen. Patient verbalized understanding. Patient given 90 day supply of Adipex. Discussed patients increased fatigue and perimenopausal. Discussed with patient checking with PCP to see about being checked for sleep apnea as these symptoms are some of patients complaints. Discussed urinary symptoms and leakage--patient will be referred to Urology for incontinence. Follow Up: Patient to RTC in 3 months and also schedule annual appointment. Documented by Natalia Zheng LPN on behalf of: Dr. Carlee Schumacher DO documented in this encounter [facility] 08-20-2024 History of Present illness Narrative Reason for Appointment: Patient ID: Jagdish Vivas is a 48 y.o. female who presents for encounter for weight management Patient presents today for Weight Management Consult. MEDICATIONS Current Outpatient Medications Medication Instructions metFORMIN XR (GLUCOPHAGE-XR) 500 mg, Oral, Daily with evening meal, Do not crush, chew, or split. phentermine (ADIPEX-P) 37.5 mg, Oral, Daily before breakfast ALLERGIES Allergies Allergen Reactions Propoxyphene Unknown Darvocet PROBLEMS Active Ambulatory Problems Diagnosis Date Noted Abnormal mammogram 05/06/2023 Abnormal weight gain 05/06/2023 Absence of bladder continence 05/06/2023 Essential hypertension (CMS/HCC) 05/06/2023 Herpes simplex viral infection 05/06/2023 Increased thirst 05/06/2023 Irregular menses 05/06/2023 Major depressive disorder, single episode, moderate (HCC) ([facility]) 05/06/2023 Menometrorrhagia 05/06/2023 Mood disorder ([facility]) 05/06/2023 Obstructive sleep apnea syndrome 05/06/2023 Other chronic pain 05/06/2023 Mixed stress and urge urinary incontinence 05/06/2023 Subacute vaginitis 05/06/2023 Uterine leiomyoma 05/06/2023 Resolved Ambulatory Problems Diagnosis Date Noted No Resolved Ambulatory Problems Past Medical History: Diagnosis Date Abscess Allergies Herpes Miscarriage 1998 Nonsmoker Tubal 2004 Uterine leiomyoma, unspecified location HISTORY PAST MEDICAL HISTORY SOCIAL HISTORY Past Medical History: Diagnosis Date Abscess Allergies Herpes Menometrorrhagia Miscarriage 1998 Nonsmoker Tubal 2004 Uterine leiomyoma, unspecified location Social History [...] Mother Trace Yepez Rheum arthritis Mother Trace Yeepz Lung cancer Father Scleroderma Sister SURGICAL HISTORY Past Surgical History: Procedure Laterality Date DILATION AND CURETTAGE 1998 DILATION AND CURETTAGE OF UTERUS 11/27/2018 Hysteroscopy with diagnostic laparoscopy ECTOPIC SURGERY 2004 lost left tube ECTOPIC SURGERY 2001 tube removed- right ovary surgically removed done at [place] VAGINAL DELIVERY REVIEW OF SYSTEMS Review of Systems: Review of Systems Constitutional: Negative. HENT: Negative. Eyes: Negative. Respiratory: Negative. Cardiovascular: Negative. Gastrointestinal: Negative. Genitourinary: Negative. Musculoskeletal: Negative. Skin: Negative. Neurological: Negative. All other systems reviewed and are negative. Hematological: Negative. Endocrine: Negative. Allergic/Immunologic: Negative. OBJECTIVE Objective: Physical Exam Constitutional: Appearance: Normal appearance. She is normal weight. HENT: Head: Normocephalic. Cardiovascular: Rate and Rhythm: Normal rate. Pulses: Normal pulses. Pulmonary: Effort: Pulmonary effort is normal. Breath sounds: Normal breath sounds. Abdominal: Palpations: Abdomen is soft. Musculoskeletal: General: Normal range of motion. Neurological: General: No focal deficit present. Mental Status: She is alert and oriented to person, place, and time. Psychiatric: Mood and Affect: Mood normal. Behavior: Behavior normal. Thought Content: Thought content normal. Judgment: Judgment normal. Vitals and nursing note reviewed. Vitals: Estimated body mass index is 30.8 kg/m as calculated from the following: Height as of 05/21/24: 5' 6 . Weight as of this encounter: 190 lb 12.8 oz. BP: 140/80 No LMP recorded. ASSESSMENT & PLAN ICD-10-CM 1. Encounter for weight management Z76.89 phentermine (Adipex-P) 37.5 MG tablet Patient presents today for Adipex prescription. Patient desires additional weigh loss and she is currently taking metformin along with working out to achieve further results. Weight and blood pressure has been captured and it has been discussed/reiterated the importance of keeping a food journal, proper nutrition/diet, and exercise regimen. Patient verbalized understanding. Patient has lost more than 5% of her initial body weight Follow Up: Patient is to return to the office in 3month for further evaluation to assess patient progress. Documented by JOE Tony on behalf of: JOE Tony documented in this encounter [facility] 05-21-2024 History of Present illness Narrative Reason for Appointment: Patient ID: Jagdish Vivas is a 48 y.o. female who presents for Weight Management Patient presents today for a weight management consultation. Patient has been prescribed Adipex and she is here for her 2nd prescription. Today's Vitals: Estimated body mass index is 30.34 kg/m as calculated from the following: Height as of this encounter: 5' 6 . Weight as of this encounter: 188 lb. Previous Weight/BMI: Wt Readings from Last 2 Encounters: 05/21/24 188 lb 04/23/24 191 lb 3.2 oz BMI Readings from Last 2 Encounters: 05/21/24 30.34 kg/m 04/23/24 30.86 kg/m Allergies as of 05/21/2024 - Reviewed 05/21/2024 Allergen Reaction Noted Propoxyphene Unknown 04/19/2023 Past Medical History: Diagnosis Date Abscess Allergies Herpes Menometrorrhagia Miscarriage 1998 Nonsmoker Tubal 2004 Uterine leiomyoma, unspecified location Past Surgical History: Procedure Laterality Date DILATION AND CURETTAGE 1998 DILATION AND CURETTAGE OF UTERUS 11/27/2018 Hysteroscopy with diagnostic laparoscopy ECTOPIC SURGERY 2004 lost left tube ECTOPIC SURGERY 2001 tube removed- right ovary surgically removed done at [place] VAGINAL DELIVERY Assessment/Plan Encounter Diagnosis Name Primary? Encounter for weight management Adipex: Patient presents today for 2nd Adipex prescription. Patients weight and blood pressure has been captured and discussed with the patient. I have discussed/reiterated the importance of keeping a food journal, proper nutrition/diet, and exercise regimen while taking Adipex. Patient verbalized understanding and was given a printed prescription signed by provider to take to their local pharmacy. Follow Up: Patient is to return to the office in 1 month for further evaluation to assess patient progress. Weight and blood pressure will need to be obtained in order for patient to receive 3rd prescription. Documented by: Herminia Cortez on behalf of JOE Tony documented in this encounter [facility] 04-23-2024 History of Present illness Narrative Reason for Appointment: Patient ID: Jagdish Vivas is a 48 y.o. female who presents for Well Women Visit Patient presents today for Annual Exam. and Weight Management Consult. MEDICATIONS No current outpatient medications ALLERGIES Allergies Allergen Reactions Propoxyphene Unknown Darvocet PROBLEMS Active Ambulatory Problems Diagnosis Date Noted Abnormal mammogram 05/06/2023 Abnormal weight gain 05/06/2023 Absence of bladder continence 05/06/2023 Essential hypertension (CMS/HCC) 05/06/2023 Herpes simplex viral infection 05/06/2023 Increased thirst 05/06/2023 Irregular menses 05/06/2023 Major depressive disorder, single episode, moderate (HCC) (CMS/HCC) 05/06/2023 Menometrorrhagia 05/06/2023 Mood disorder (CMS/HCC) 05/06/2023 Obstructive sleep apnea syndrome 05/06/2023 Other chronic pain 05/06/2023 Mixed stress and urge urinary incontinence 05/06/2023 Subacute vaginitis 05/06/2023 Uterine leiomyoma 05/06/2023 Resolved Ambulatory Problems Diagnosis Date Noted No Resolved Ambulatory Problems Past Medical History: Diagnosis Date Abscess Allergies Herpes Miscarriage 1998 Nonsmoker Tubal 2004 Uterine leiomyoma, unspecified location HISTORY PAST MEDICAL HISTORY SOCIAL HISTORY Past Medical History: Diagnosis Date Abscess Allergies Herpes Menometrorrhagia Miscarriage 1998 Nonsmoker Tubal 2004 Uterine leiomyoma, unspecified location Social History [...] Relation Name Age of Onset Hypertension Mother Lung cancer Father Scleroderma Sister SURGICAL HISTORY Past Surgical History: Procedure Laterality Date DILATION AND CURETTAGE 1998 DILATION AND CURETTAGE OF UTERUS 11/27/2018 Hysteroscopy with diagnostic laparoscopy ECTOPIC SURGERY 2003 lost left tube ECTOPIC SURGERY 2001 tube removed- right ovary surgically removed done at [place] VAGINAL DELIVERY REVIEW OF SYSTEMS Review of Systems: Review of Systems All other systems reviewed and are negative. OBJECTIVE Objective: Physical Exam Constitutional: Appearance: Normal [...] nursing note reviewed. Exam conducted with a roofer vinyl coating present. Vitals: Estimated body mass index is 30.86 kg/m as calculated from the following: Height as of 07/27/23: 5' 6 . Weight as of this encounter: 191 lb 3.2 oz. BP: 122/72 No LMP recorded. ASSESSMENT & PLAN ICD-10-CM 1. Well woman exam with routine gynecological exam Z01.419 THIN PREP TIS PAP AND HR HPV DNA 2. Breast cancer screening by mammogram Z12.31 Bilateral screening mammogram Bilateral screening mammogram Annual: Patient presents today for an annual exam. Patient states she is doing well and has no complaints. Pap was obtained without difficulty and patient given mammogram order to have scheduled/obtained. Patient desires to start weight loss journey again. Patient to be prescribed Metformin 500mg daily and then return to clinic in 1 month for Adipex #2 prescription. Patient complaints of urinary urgency and incontinence. Patient to have pelvic ultrasound done as well due to possible fibroid. Orders Placed This Encounter Procedures Bilateral screening mammogram Follow Up: Patient is to return in one year for annual unless needed otherwise. Documented by Natalia Zheng LPN on behalf of: Carlee Schumacher DO documented in this encounter [facility] Healthcare Evaluation + Plan note No data available for this section [facility] Evaluation note Diagnosis Encounter for weight management [facility] Diagnosis Bacterial vaginitis- Primary Unspecified vaginitis and vulvovaginitis documented [facility] Diagnosis Well woman exam with routine gynecological exam Routine gynecological examination Breast cancer screening by mammogram Encounter for weight management Urinary urgency Urgency of urination Mixed stress and urge urinary incontinence Mixed incontinence urge and stress (male)(female) Uterine leiomyoma, unspecified location HSV infection Herpes simplex without mention of complication documented in this encounter [facility] Healthcare[facility] note* Diagnosis Encounter for weight management Yeast infection Bacterial vaginosis Unspecified vaginitis and vulvovaginitis Stress incontinence of urine documented in this encounter [facility] Discharge instructions No data available for this section [facility] progress note No data available for this section [facility] [employer] Summary Purpose Family History No Family History Records FoundNo Family History Records Found No data available for this section No Family History Records Found No data available for this section No Family History Records Found Advance Directives No Advanced Directives Records FoundNo Advanced Directives Records FoundNo Advanced Directives Records FoundNo Advanced Directives Records Found Additional Source Comments INFORMATION SOURCE (unrecogn ized section and content) DATE CREATED AUTHOR 11/04/2021 [facility] dical Specialist DATE CREATED AUTHOR AUTHOR'S ORGANIZ ATION 04/26/2022 [facility] DATE CREATED AUTHOR AUTHOR'S ORGANIZ ATION 11/12/2024 [facility] dical Specialists EPIC DATE CREATED AUTHOR AUTHOR'S ORGANIZ ATION 03/31/2025 [facility] [place] [facility] Care Teams (unrecognized sec tion and content) Manufacture Specialist Relationship Specialty Start Date End Date Josefina Farias MD [address] [place] [address] PCP - General Family Medicine 11/30/22 Brigida Gonzalez CABLE TELEVISION TECHNICIAN [address] [facility] [place] [address] PCP - [facility] 01/23/24 Manufacture Specialist Relationship Specialty Start Date End Date Josefina Farias MD [address] [facility] [place] [address] PCP - General Family Medicine 11/30/22 Brigida Gonzalez CABLE TELEVISION TECHNICIAN [address] [place] [address] PCP - [facility] 01/23/24 Manufacture Specialist Relationship Specialty Start Date End Date Josefina Farias MD [address] [place] [address] PCP - General Family Medicine 11/30/22 Brigida Gonzalez CABLE TELEVISION TECHNICIAN [address] [place] [address] PCP - [facility] 01/23/24 Manufacture Specialist Relationship Specialty Start Date End Date Josefina Farias MD [address] [place] [address] PCP - General Family [facility] 11/30/22 Brigida Gonzalez, CABLE TELEVISION TECHNICIAN [address] [place] [address] PCP - [facility] 01/23/24 Manufacture Specialist Relationship Specialty Start Date End Date Josefina Farias MD [address] [place] [address] PCP - General [facility] 11/30/22 Brigida Gonzalez, CABLE TELEVISION TECHNICIAN [address] [facility] [place] [address] PCP - [facility] 01/23/24 Manufacture Specialist Relationship Specialty Start Date End Date Josefina Farias MD [address] [place] [address] PCP - General Family [facility] 11/30/22 Brigida Gonzalez, CABLE TELEVISION TECHNICIAN [address] [facility] [place] [address] PCP - [facility] 01/23/24 Manufacture Specialist Relationship Specialty Start Date End Date Josefina Farias MD [address] [facility] [place] [address] PCP - General Family Medicine 11/30/22 Brigida Gonzalez, CABLE TELEVISION TECHNICIAN PCP - [facility] 01/23/24 Manufacture Specialist Relationship Specialty Start Date End Date Josefina Farias MD [address] [facility] [place] [place] [address] PCP - General Family Medicine 11/30/22 Brigida Gonzalez NP PCP - [facility] 01/23/24 Manufacture Specialist Relationship Specialty Start Date End Date Josefina Farias MD [address] [place] [address] PCP - General Family Medicine 11/30/22 Brigida Gonzalez NP PCP - [facility] 01/23/24 Reason for Visit (unrecogniz ed section and content) Reason Comments Weight Management Reason Onset Date Comments Med Refill 06/20/2024 Reason Comments Well Women Visit Reason Comments encounter for weight management Reason Comments Weight Management FOR RECORDS PERTAINING TO PATIENTS WHO ARE OR HAVE BEEN ENROLLED IN A CHEMICAL DEPENDENCY/SUBSTANCEABUSE PROGRAM, SOME INFORMATION MAY BE OMITTED. This clinical summary was aggregated from multiple sources. Caution should be exercised in using it in the provision of clinical care. This summary normalizes information from multiple sources, and as a consequence, information in this document may materially change the coding, format and clinical context of patient data. In addition, data may be omitted in some cases. CLINICAL DECISIONS SHOULD BE BASED ON THE PRIMARY CLINICAL RECORDS. [facility] [employer] [facility]. provides no warranty or guarantee of the accuracy or completeness of information in this document.
== END 2025-04-25 12:58 | disposition home or self-care (01) ==
LOC: MAMMO 13:01
PROVIDERS: PCP Family Medicine; Visit Provider Obstetrics & Gynecology
DX: Z01.419 Encounter for gynecological examination (general) (routine) without abnormal findings (principal); Z12.31 Encounter for screening mammogram for malignant neoplasm of breast; Z78.0 Asymptomatic menopausal state; M85.88 Other specified disorders of bone density and structure, other site
CPT/HCPCS: 77063; 77067; 77080; 87624; 88175

== ENCOUNTER 2025-04-25 20:24 | Outpatient (REF) | payer OTHER, SELFPAY ==
--- OUTSIDE RECORDS SUMMARY | 2025-04-25 11:00 | XMS_ITS | Encounter Summary ---
Author Organization [facility] Address [address] [place] [address] Care Team Providers Care Aerographer Name Role Phone Josefina Farias MD Primary Care Provider Brigida Gonzalez NP Unavailable Reason for Referral * Medications - Authorized Specialty Diagnoses / Procedures Referred By Gunner cervantes Referred To Contact Diagnoses Acne, unspecified acne type Janay Brady NP [facility] [place] [address] Phone: tel: fax: Referral ID Status Reason Start Date Expiration Date V isits Requested Visits Authorized [id number] Authorized 04/25/2025 04/24/2026 1 1 Reason for Visit * Reason Comments Well Women Visit Encounter Details Date Type Department Care Team (Late st Contact Info) Description 04/25/2025 11:00 AM EDT Office Visit [facility] MOSCOSO [address] [place] [address] Janay Bardy NP [address] [place] [address] Acne, unspecified acne type (Primary Dx); Well woman exam with routine gynecological exam; Breast cancer screening by mammogram; Postmenopausal state; UTI symptoms; Heat rash; Exposure to STD Social History Tobacco Use Types Packs/Day Years Used Date Smoking Tobacco: Never Smokeless Tobacco: Never Alcohol Use Standard Drinks/Week Comments Yes 2 (1 standard drink = 0.6 oz pure alcohol) Alcohol: 1 or 2 drinks on a typical day / 2 to 4 times a month. Caffeine: 1-2 cups/day soda, tea PHQ-2 Answer Date Recorded Patient Health Questionnaire-2 Score 0 05/06/2023 Comments No Sex and Gender Information Value Date Recorded Sex Assigned at Not on file Legal Sex Female 6:41 PM EDT Gender Identity Not on file Sexual Orientation Not on file documented as of this encounter Last Filed Vital Signs Vital Sign Reading Time Taken Comments Blood Pressure 110/68 04/25/2025 11:42 AM EDT Pulse - - Temperature - - Respiratory Rate - - Oxygen Saturation - - Inhaled Oxygen Concentration - - Weight 84.3 kg (185 lb 12.8 oz) 025 11:42 AM EDT Height - - Body Mass Index 29.99 05/21/2024 12:04 PM EDT documented in this encounter Progress Notes * Janay Brady NP - 04/25/2025 11:00 AM EDT Reason for Appointment: Patient ID: Felicitas Steve is a 49 y.o. female who presents for Well Women Visit Patient presents today for Annual Exam. MEDICATIONS Current Outpatient Medications Medication Instructions nystatin (Mycostatin) 463292 UNIT/GM powder Topical, 3 times daily ALLERGIES No Known Allergies PROBLEMS Active Ambulatory Problems Diagnosis Date Noted Abnormal mammogram 05/06/2023 Abnormal weight gain 05/06/2023 Absence of bladder continence 05/06/2023 Essential hypertension 05/06/2023 Herpes simplex viral infection 05/06/2023 Increased thirst 05/06/2023 Irregular menses 05/06/2023 Major depressive disorder, single episode, moderate (HCC) 05/06/2023 Menometrorrhagia 05/06/2023 Mood disorder 05/06/2023 Obstructive sleep apnea syndrome 05/06/2023 Other chronic pain 05/06/2023 Mixed stress and urge urinary incontinence 05/06/2023 Subacute vaginitis 05/06/2023 Uterine leiomyoma 05/06/2023 Resolved Ambulatory Problems Diagnosis Date Noted No Resolved Ambulatory Problems Past Medical History: Diagnosis Date Abscess Allergies Herpes Miscarriage ([facility]) 1998 Nonsmoker Tubal ([facility]) 2004 Uterine leiomyoma, unspecified location HISTORY PAST MEDICAL HISTORY SOCIAL HISTORY Past Medical History: Diagnosis Date Abscess Allergies Herpes Menometrorrhagia Miscarriage ([facility]) 1998 Nonsmoker Tubal ([facility]) 2004 Uterine leiomyoma, unspecified location Social History Tobacco Use Smoking status: Never Smokeless tobacco: Never Substance Use Topics Alcohol use: Yes Alcohol/week: 2.0 standard drinks of alcohol Types: 2 Standard drinks or equivalent per week Comment: Alcohol: 1 or 2 drinks on a typical day / 2 to 4 times a month. Caffeine: 1-2 cups/day soda, tea Drug use: Never FAMILY HISTORY Family History Problem Relation Name Age of Onset Hypertension Mother Trace Yepez Rheum arthritis Mother Trace Yepez Lung cancer Father Scleroderma Sister SURGICAL HISTORY Past Surgical History: Procedure Laterality Date DILATION AND CURETTAGE 1998 DILATION AND CURETTAGE OF UTERUS 11/27/2018 Hysteroscopy with diagnostic laparoscopy ECTOPIC SURGERY 2003 lost left tube ECTOPIC SURGERY 2001 tube removed- right ovary surgically removed done at [place] VAGINAL DELIVERY REVIEW OF SYSTEMS Review of Systems: Review of Systems Constitutional: Negative. HENT: Negative. Eyes: Negative. Respiratory: Negative. Cardiovascular: Negative. Gastrointestinal: Negative. Genitourinary: Negative. Musculoskeletal: Negative. Skin: Negative. Neurological: Negative. All other systems reviewed and are negative. Hematological: Negative. Endocrine: Negative. Allergic/Immunologic: Negative. OBJECTIVE Objective: Physical Exam Constitutional: Appearance: Normal appearance. She is well-developed. Genitourinary: Vulva normal. Breasts: Breasts are soft. Right: Normal. Left: Normal. Cardiovascular: Rate and Rhythm: Normal rate and regular rhythm. Pulmonary: Effort: Pulmonary effort is normal. Breath sounds: Normal breath sounds. Abdominal: General: Bowel sounds are normal. There is no distension. Palpations: Abdomen is soft. Tenderness: There is no abdominal tenderness. There is no guarding or rebound. Musculoskeletal: General: No swelling. Normal range of motion. Right lower leg: No edema. Left lower leg: No edema. Neurological: Mental Status: She is alert and oriented to person, place, and time. Skin: General: Skin is warm and dry. Psychiatric: Mood and Affect: Mood normal. Behavior: Behavior normal. Vitals and nursing note reviewed. Exam conducted with a magnesium mill operator present. Vitals: Estimated body mass index is 29.99 kg/m?? as calculated from the following: Height as of 05/21/24: 5' 6 . Weight as of this encounter: 185 lb 12.8 oz. BP: 110/68 No LMP recorded. Patient is perimenopausal. ASSESSMENT & PLAN ICD-10-CM 1. Well woman exam with routine gynecological exam Z01.419 THIN PREP TIS PAP AND HR HPV DNA 2. Breast cancer screening by mammogram Z12.31 Bilateral screening mammogram Bilateral screening mammogram 3. Postmenopausal state Z78.0 DEXA bone density nystatin (Mycostatin) 450291 UNIT/GM powder 4. UTI symptoms R39.9 POCT urinalysis dipstick manually resulted 5. Heat rash L74.0 nystatin (Mycostatin) 733161 UNIT/GM powder 6. Exposure to STD Z20.2 SURESWAB(R) ADVANCED VAGINITIS PLUS, TMA CHLAMYDIA TRACHOMATIS (GENITO/STI) Neisseria gonorrhea DNA probe, direct Annual: Patient presents today for an annual exam. Patient states she is doing well and has no complaints. Pap was obtained without difficulty and patient given mammogram/Dexa order to have scheduled/obtained. Patient does have hot flashes at night mood swings and last Period was in October for 5 days. Patient complains of heat rashes under the breast due to hot flashes of menopause. Pt currently been using baby powder to help with the sweat/rashes. However, in the past was using Nystatin powder tohelp with the hot flashes/sweating. Pt desires to have std check and cx's were taken. Pt complains of having issue w/BV or maybe trich. KESHA Gustafson took cx's pt advised will take 1-2 days for results. Urine was sent out for cx's due to some blood in urine. Orders Placed This Encounter Procedures Bilateral screening mammogram DEXA bone density CHLAMYDIA TRACHOMATIS (GENITO/STI) Neisseria gonorrhea DNA probe, direct POCT urinalysis dipstick manually resulted Follow Up: Patient is to return in one year for annual unless needed otherwise. Documented by Katelin Kaiser LPN on behalf of: Janay Brady NP documented in this encounter Miscellaneous Notes * Addendum Note - Myla Godoy MA - 04/25/2025 11:00 AM EDTAddended by: MYLA GODOY on: 04/25/2025 01:47 PM Modules accepted: Orders documented in this encounter Plan of Treatment Upcoming Encounters Date Type Department Care Team (Late st Contact Info) Description 04/28/2026 1:00 PM EDT Procedure [facility] [address] [place] [address] Milton Schumacher DO [address] [place] [address] Scheduled Orders Name Type Priority Associated Diagnoses Orde r Schedule Bilateral screening mammogram Imaging Routine Breast cancer screening by mammogram Expected: 04/25/2025, Expires: 06/25/2026 DEXA bone density Imaging Routine Postmenopausal state Expected: 04/25/2025 (Approximate), Expires: 04/25/2026 THIN PREP TIS PAP AND HR HPV DNA Pathology and Cytology Routine Well woman exam with routine gynecological exam Ordered: 04/25/2025 SURESWAB(R) ADVANCED VAGINITIS PLUS, TMA Pathology and Cytology Routine Exposure to STD Ordered: 04/25/2025 CHLAMYDIA TRACHOMATIS (GENITO/STI) Lab Routine Exposure to STD Ordered: 04/25/2025 Neisseria gonorrhea DNA probe, direct Lab Routine Exposure to STD Ordered: 04/25/2025 Urine culture Microbiology Routine UTI symptoms Ordered: 04/25/2025 documented as of this encounter Procedures Procedure Name Priority Date/Time Associated Diagnosis Comments POCT URINALYSIS DIPSTICK Routine 04/25/2025 11:52 AM EDT UTI symptoms documented in this encounter Results * (ABNORMAL) POCT urinalysis dipstick manually resulted (04/25/2025 11:52 AM EDT) Color, UA Yellow Clarity, UA Cloudy Glucose, UA Negative Negative - 2000(110) ++++ mg/dL Bilirubin, UA Negative Negative - 4(70) +++ mg/dL Ketones, UA Negative Negative - 160(16) ++++ mg/dL Spec Grav, UA 1.015 1 - 1.03 Blood, UA Positive Negative - 50 Pascual/mcL pH, UA 6.5 5 - 9 Protein, UA Negative Negative - 2000(20) ++++ mg/dL Urobilinogen, UA 1.0 0.2 - 12 mg/dL Leukocytes, UA Negative Negative - 500+++ Jesus Manuel/mcL Nitrite, UA Negative Negative - Positive Urine 04/25/2025 11:5 2 AM EDT Janay Brady NP POINT OF CARE TEST ENTER/EDIT ORDERABLES Final Result documented in this encounter Visit Diagnoses Diagnosis Acne, unspecified acne type- Primary Well woman exam with routine gynecological exam Routine gynecological examination Breast cancer screening by mammogram Postmenopausal state Asymptomatic postmenopausal status (age-related) (natural) UTI symptoms Heat rash Prickly heat Exposure to STD documented in this encounter Care Teams Aerographer Relationship Specialty Start Date End Date Josefina Farias MD [address] [place] [address] PCP - General Family Medicine 11/30/22 Brigida Gonzalez NP PCP - [facility] 01/23/24 documented as of this encounter
--- OUTSIDE RECORDS SUMMARY | 2025-04-25 20:28 | XMS_ITS | Encounter Summary ---
Author Organization [employer] Address [facility] [id number] [address] [place] [address] Care Team Providers Care Sidewalk Inspector Name Role Phone Josefina Farias MD Primary Care Provider [phone] Reason for Visit * Reason Onset Date [...] on filedocumented in this encounter Care Teams Sidewalk Inspector Relationship Specialty Start Date End Date Josefina Farias MD PCP - General Family Medicine 05/03/23 documented as of this encounter
--- OUTSIDE RECORDS SUMMARY | 2025-04-25 20:28 | XMS_ITS | Encounter Summary ---
Author Organization [facility] Address [address] [place] [address] Care Team Providers Care Cider Press Operator Name Role Phone Josefina Farias MD Unavailable Josefina Farias MD Primary Care Provider Denia Munoz MD Unavailable [phone] Brigida Gonzalez NP Unavailable Encounter Details Date Type Department Care Team (Late st Contact Info) Description 01/31/2023 [facility] Family Medicine [address] [place] [address] Josefina Farias MD [address] [place], [place] [id number] Social History Tobacco Use Types Packs/Day Years [...] EDT Procedure Visit [facility] [address] [address] Milton Schumacher DO [address] [place], [place] [id number] documented as of this encounter Visit Diagnoses Not on filedocumented in this encounter Care Teams Cider Press Operator Relationship Specialty Start Date End Date Josefina Farias MD [address] [place], [place] [id number] PCP - [facility] 01/22/23 Josefina Farias MD [address] [place], [place] [id number] PCP - General Family Medicine 11/30/22 Denia Munoz MD [address] [place], [place] [id number] PCP - [facility] 10/24/23 Brigida Gonzalez NP PCP - [facility] 01/23/24 documented as of this encounter
--- OUTSIDE RECORDS SUMMARY | 2025-04-25 20:28 | XMS_ITS | Encounter Summary ---
Author Organization [facility] Address [address] [place] [address] Care Team Providers Care Supervisor Sawmill Name Role Phone Josefina Farias MD Primary Care Provider [phone] Brigida Gonzalez NP Unavailable Encounter Details Date Type Department Care Team (Late Contact Info) Description 04/25/2025 Bamboo flowsheet [facility] [address] [facility] [place] [address] Janay Brady, KEHSA [address] [facility] [place] [address] Social History Tobacco Use Types Packs/Day [...] EDT Procedure Visit [facility] [address] [facility] [place] [address] Milton Schumacher, [address] [place] [address] documented as of this encounter Visit Diagnoses Not on filedocumented in this encounter Care Teams Supervisor Sawmill Relationship Specialty Start Date End Date Josefina Farias MD [address] [place] [address] PCP - General Family Medicine 11/30/22 Brigida Gonzalez NP PCP - [facility] 01/23/24 documented as of this encounter
--- OUTSIDE RECORDS SUMMARY | 2025-04-25 20:28 | XMS_ITS | Encounter Summary ---
Author Organization [facility] Address [address] [place] [address] Care Team Providers Care Rod Puller And Coiler Name Role Phone Josefina Farias MD Unavailable Josefina Farias MD Primary Care Provider [phone] Denia Munoz MD Unavailable Brigida Gonzalez NP Unavailable Encounter Details Date Type Department Care Team (Late st Contact Info) Description 05/13/2023 Abstract [facility] Family Medicine [address] [place] [address] Dilcia Elizabeth NP [address] [place] [id number] Social History Tobacco Use Types Packs/Day Years [...] EDT Procedure Visit [facility] Te[facility] [address] [facility] [place] [address] Milton Schumacher DO [address] [facility] [place] [address] documented as of this encounter Visit Diagnoses Not on filedocumented in this encounter Care Teams Rod Puller And Coiler Relationship Specialty Start Date End Date Josefina Farias MD [address] [place] [address] PCP - [facility] 01/22/23 Josefina Farias MD [address] [place], [place] [id number] PCP - General Family Medicine 11/30/22 Denia Munoz MD [address] [place] [address] PCP - [facility] 10/24/23 Brigida Gonzalez NP PCP - [facility] 01/23/24 documented as of this encounter
--- OUTSIDE RECORDS SUMMARY | 2025-04-25 20:28 | XMS_ITS | Encounter Summary ---
Author Organization [facility] Address [address] [place] [address] Care Team Providers Care Production Cell Leader Name Role Phone Josefina Farias MD Primary Care Provider [phone] Brigida Gonzalez TIME ANALYSIS CLERK Unavailable Encounter Details Date Type Department Care Team (Late Contact Info) Description 05/02/2024 Orders Only [facility] [address] [place] [address] Merline Arroyo LPN [address] [place] [address] Social History Tobacco Use Types [...] EDT Procedure Visit [facility] [address] [place] [address] Milton Schumacher DO [address] [place] [address] [place] [address] documented as of this encounter Procedures Procedure Name Priority Date/Time Associated Diagnosis Comments PAP SMEAR Routine 04/23/2024 12:00 AM EDT documented in this encounter Results * Pap Smear (04/23/2024 12:00 AM EDT) Swab Cervical swab / Unknown Milton Schumacher DO LAB CYTOLOGY ORDERABLES Final Re sult EXTERNAL LAB documented in this encounter Visit Diagnoses Not on filedocumented in this encounter Care Teams Production Cell Leader Relationship Specialty Start Date End Date Josefina Farias MD [address] [place] [address] PCP - General Family Medicine 11/30/22 Brigida Gonzalez NP PCP - [facility] 01/23/24 documented as of this encounter
--- OUTSIDE RECORDS SUMMARY | 2025-04-25 20:28 | XMS_ITS | Encounter Summary ---
Author Organization [facility] Address [address] [place] [address] Care Team Providers Care Nutrition Counselor Name Role Phone Josefina Farias MD Primary Care Provider [phone] Brigida Gonzalez STUDENT COUNSELOR Unavailable Encounter Details Date Type Department Care [...] EDT Procedure Visit [facility] [address] [facility] [place] [place] [address] Milton Schumacher DO [address] [place] [address] documented as of this encounter Visit Diagnoses Not on filedocumented in this encounter Care Teams Nutrition Counselor Relationship Specialty Start Date End Date Josefina Farias MD [address] [place] [address] PCP - General Family Medicine 11/30/22 Brigida Gonzalez NP PCP - [facility] 01/23/24 documented as of this encounter
--- OUTSIDE RECORDS SUMMARY | 2025-04-25 20:28 | XMS_ITS | Clinical Summary ---
Author Organization [facility] Address [id number] [address] [place] [address] Care Team Providers Care Calender Machine Operator Name Role Phone Josefina Farias MD Primary Care Provider [phone] Allergies Active Allergy Reactions Criticality Noted Date [...] on file Insurance [employer] Care Teams Calender Machine Operator Relationship Specialty Start Date End Date Josefina Farias MD PCP - General Family Medicine 05/03/23
--- OUTSIDE RECORDS SUMMARY | 2025-04-25 20:28 | XMS_ITS | Clinical Summary ---
Author Organization [facility] Address [address] [place] [address] Care Team Providers Care Regional Economist Name Role Phone Josefian Farias MD Primary Care Provider [phone] Brigida Gonzalez NP Unavailable Allergies No known active allergies Medications nystatin (Mycostatin) 537015 UNIT/GM powderIndicatio ns:Postmenopaus al state,Heat rash Apply topically in the morning and in the evening and before bedtime. 15 g 04/25/20 25 026 Active valACYclovir (Valtrex) 1 g tabletIndicatio ns:Exposure to STD Take 0.5 tablets (500 mg) by mouth Daily 30 tablet 04/25/20 25 025 Active Adapalene-Benzo yl Peroxide (Epiduo) 0.1-2.5 % gelIndications: Acne, unspecified acne type Apply 45 g topically at bedtime 45 g 04/25/20 25 026 Active metFORMIN XR (Glucophage-XR) 500 MG 24 hr tabletIndicatio ns:Encounter for weight management Take 1 tablet (500 mg) by mouth in the evening. Take with meals Do not crush, chew, or split. 30 tablet 11 04/23/20 24 025 Discontinued phentermine (Adipex-P) 37.5 MG tabletIndicatio ns:Encounter for weight management Take 1 tablet (37.5 mg) by mouth in the morning. Take before meals. 90 tablet 08/20/19 25 025 Discontinued phentermine (Adipex-P) 37.5 MG tabletIndicatio ns:Encounter for weight management Take 1 tablet (37.5 mg) by mouth in the morning. Take before meals. 90 tablet 11/13/19 025 Discontinued valACYclovir (Valtrex) 1 g tablet TAKE 1 TABLET BY MOUTH TWICE DAILY FOR 10 DAYS (MORNING AND BEFORE BEDTIME) 12/15/19 025 Discontinued(Re order) Active Problems Problem Noted [...] Description 04/25/2025 11:00 AM EDT Office Visit [facility] [address] [facility] [place] [address] Janay Brady NP Acne, unspecified acne type (Primary Dx); Well woman exam with routine gynecological exam; Breast cancer screening by mammogram; Postmenopausal state; UTI symptoms; Heat rash; Exposure to STD 04/25/2025 Clinisync Result Encounter [facility] External Department Unsolicited Provider, Generic External Data 04/25/2025 Bamboo flowsheet [facility] [address] [facility] [place] [address] Janay Brady NP 04/24/2025 Travel from Last 3 Months Immunizations Immunization Administration Dates Next Due Tdap 11/02/2016 Family History Medical History Relation Name Comments Lung cancer Father Hypertension Mother Trace Yepez Rheum arthritis Mother Jewcarrie Yepez Scleroderma Sister Relation Name Status Comments [...] EDT Procedure Visit [facility] [address] [facility] [place] [address] Carlee Schumacher DO [address] [place] [address] Health Maintenance Due Date Last Done Comments CT Colonography 1974 Colonoscopy 1974 Colorectal Cancer Screening 1974 FIT-DNA 1974 FIT 1974 FOBT 1974 Sigmoidoscopy 1974 HPV/Cotest 2004 Influenza Vaccine (#1) 2025 Mammogram 04/25/2026 04/25/2025, 04/24, 03/09/2021, Additional history exists Cervical Cancer Screening 04/23/2027 Pap Smear 04/23/2027 04/23/2024 Procedures Procedure Name Priority Date/Time Associated Diagnosis Comments MM TOMOSYNTHESIS SCREENING BI 04/25/2025 5:17 PM EDT POCT URINALYSIS DIPSTICK Routine 04/25/2025 11:52 AM EDT UTI symptoms PAP SMEAR Routine 04/23/2024 12:00 AM EDT from Last 3 Months or Most Recently Relevant to Health Maintenance Results * MM TOMOSYNTHESIS SCREENING BI (04/25/2025 5:17 PM EDT) Anatomical Region Laterality Modality Other 04/25/2025 5:17 PM EDT Narrative 04/25/2025 5:18 [place] [address] Mammography Report Signed Patient: JAGDISH VIVAS I MR#: [id number] : 1975 Acct:[id number] Age/Sex: 49 / F ADM Date: 04/25/25 Loc: MAMMO Attending Dr: Carlee Schumacher D.O. Ordering Physician: Carlee Schumacher D.O. Results: Date of Service: 04/25/25 Follow Up: Procedure(s): MM tomosynthesis screening BI Accession Number(s): [id number] cc: JOSEFINA FARIAS ; Carlee Schumacher D.O. Patient Name: JAGDISH VIVAS MR#: [id number] : 1975 Exam Date: 04/25/2025 Ordering Doctor: DR CARLEE SCHUMACHER . RADIOLOGY REPORT PROCEDURE: MM TOMOSYNTHESIS SCREENING BI COMPARISON: MG MAMM SCREEN 3D [place] CAD, 04/22/2022. MG MAMM SCREEN 3D [place] CAD, 03/09/2021. MG MAMM SCREEN 3D [place] CAD, 11/10/2016. INDICATIONS: Screening Calculator Name NCI Breast Cancer Risk Assessment Tool 5 Year Breast Cancer Risk 1.10% Lifetime Breast Cancer Risk 8.70% Personal Breast Cancer No Personal Ovarian Cancer No Treatments None Family Cancers None LOCATION: [facility] BREAST COMPOSITION: The breasts are heterogeneously dense, which may obscure small masses. FINDINGS: RIGHT BREAST: No significant suspicious finding. Similar focal asymmetries are present. LEFT BREAST: No significant suspicious finding. Similar focal asymmetries are present. DIAGNOSTIC CATEGORY 2--BENIGN FINDING. NO CHANGE FROM COMPARISON. RECOMMENDATIONS: ROUTINE MAMMOGRAM AND CLINICAL EVALUATION IN 12 MONTHS. Dictated by: Emiliano Bowie MD on 04/25/2025 at 17:13 Approved by: Emiliano Bowie MD on 04/25/2025 at 17:17 Dictated By: Emiliano Bowie M.D. Signed By: 04/25/251717 DD/ 16 TD/TT: Bilingual Social Worker: Procedure Note Radiology, Radiologist, - 04/25/2025 [place] [address] Mammography Report Signed Patient: JAGDISH VIVAS IMR#: [id number] : 1975Acct:[id number] Age/Sex: 49 / FADM Date: 04/25/25 Loc: MAMMO Attending Dr: Carlee Schumacher D.O. Ordering Physician: Carlee Schumacher D.O.Results: Date of Service: 04/25/25Follow Up: Procedure(s): MM tomosynthesis screening BI Accession Number(s): [id number] cc: JOSEFINA FARIAS Corey D.O. Patient Name: JAGDISH VIVAS MR#: [id number] : 1975 Exam Date: 04/25/2025 Ordering Doctor: DR CARLEE SCHUMACHER . RADIOLOGY REPORT PROCEDURE: MM TOMOSYNTHESIS SCREENING BI COMPARISON: MG MAMM SCREEN 3D [place] CAD, 04/22/2022. MG MAMM SCREEN 3DBIL CAD, 03/09/2021. MG MAMM SCREEN 3D [place] CAD, 11/10/2016. INDICATIONS: Screening Calculator Name NCI Breast Cancer Risk Assessment Tool 5 Year Breast Cancer Risk 1.10% Lifetime Breast Cancer Risk 8.70% Personal Breast Cancer No Personal Ovarian Cancer No Treatments None Family Cancers None LOCATION: [facility] BREAST COMPOSITION: The breasts are heterogeneously dense, which may obscure small masses. FINDINGS: RIGHT BREAST: No significant suspicious finding. Similar focalasymmetries are present. LEFT BREAST: No significant suspicious finding. Similar focalasymmetries are present. DIAGNOSTIC CATEGORY 2--BENIGN FINDING. NO CHANGE FROM COMPARISON. RECOMMENDATIONS: ROUTINE MAMMOGRAM AND CLINICAL EVALUATION IN 12 MONTHS. Dictated by: Emiliano Bowie MD on 04/25/2025 at 17:13 Approved by: Emiliano Bowie MD on 04/25/2025 at 17:17 Dictated By: Emiliano Bowie M.D. Signed By:04/25/251717 DD/ 16 TD/TT: Bilingual Social Worker: us Generic External Data Provider [facility] Final Result * (ABNORMAL) POCT urinalysis dipstick manually resulted [...] AM EDT) Swab Cervical swab / Unknown Carlee Schumacher DO LAB CYTOLOGY ORDERABLES Final Re sult EXTERNAL LAB from Last 3 Months or Most Recently Relevant to Health Maintenance Insurance [employer] Care Teams Regional Economist Relationship Specialty Start Date End Date Josefina Farias MD [address] [place], [place] [address] PCP - General Family Medicine 11/30/22 Brigida Gonzalez NP PCP - [facility] 01/23/24
--- OUTSIDE RECORDS SUMMARY | 2025-04-25 20:28 | XMS_ITS | Encounter Summary ---
Author Organization [facility] Address [address] [facility] [address] Care Team Providers Care Heel Curver Name Role Phone Josefina Farias MD Unavailable Josefina Farias MD Primary Care Provider Denia Munoz MD Unavailable [phone] Brigida Gonzalez NP Unavailable Encounter Details Date Type Department Care Team (Late st Contact Info) Description 01/27/2023 Abstract [facility] Family Medicine [address] [place] [address] Sasha Demarco, DIRECTOR AUTOMOTIVE [address] [place] [address] Social History Tobacco Use Types Packs/Day Years [...] EDT Procedure Visit [facility] [place] [facility] [address] [facility] [address] Milton Schumacher DO [address] [place], [place] [address] documented as of this encounter Visit Diagnoses Not on filedocumented in this encounter Care Teams Heel Curver Relationship Specialty Start Date End Date Josefina Farias MD [address] [place], [place] [address] PCP - [facility] 01/22/23 Josefina Farias MD [address] [place], [place] [address] PCP - General Family Medicine 11/30/22 Denia Munoz MD [address] [place], [place] [address] PCP - [facility] 10/24/23 Brigida Gonzalez NP PCP - [facility] 01/23/24 documented as of this encounter
--- OUTSIDE RECORDS SUMMARY | 2025-04-25 20:28 | XMS_ITS | Encounter Summary ---
Author Organization [facility] Address [address] [place] [address] Care Team Providers Care Cuff Setter Overlock Name Role Phone Josefina Farias MD Primary Care Provider [phone] Brigida Gonzalez SERVICE PARTS DRIVER Unavailable Encounter Details Date Type Department Care Team (Late Contact Info) Description 11/23/2024 Abstract JONA MOSCOSO [address] [place] [address] Milton Schumacher, [address] [place], [facility] Social History Tobacco Use Types Packs/Day [...] Procedure Visit N[facility]on MOSCOSO [address] [place] [address] Milton Schumacher [address] [place] [address] documented as of this encounter Visit Diagnoses Not on filedocumented in this encounter Care Teams Cuff Setter Overlock Relationship Specialty Start Date End Date Josefina Farias MD [address] [place] [address] PCP - General Family Medicine 11/30/22 Brigida Gonzalez NP PCP - [facility] 01/23/24 documented as of this encounter
--- OUTSIDE RECORDS SUMMARY | 2025-04-25 20:28 | XMS_ITS | Encounter Summary ---
Author Organization [facility] Address [address] [place] [address] Care Team Providers Care Button Facing Machine Operator Name Role Phone Mele Duval MD Primary Care Provider [phone] Brigida Gonzalez COLLAR STARCHER Unavailable Encounter Details Date Type Department Care Team (Late st Contact Info) Description 04/25/2025 Clinisync Result Encounter [facility] External Department Unsolicited Provider, Generic External Data Social History Tobacco Use Types Packs/Day Years [...] EDT Procedure Visit [facility] [address] [facility] [place] [address] Carlee Schumacher DO [address] [place] [address] documented as of this encounter Procedures Procedure Name Priority Date/Time Associated Diagnosis Comments MM TOMOSYNTHESIS SCREENING BI 04/25/2025 5:17 PM EDT documented in this encounter Results * MM TOMOSYNTHESIS SCREENING BI (04/25/2025 5:17 PM EDT) Anatomical Region Laterality Modality Other 04/25/2025 5:17 PM EDT Narrative 04/25/2025 5:18 [place] [address] Mammography Report Signed Patient: JAGDISH VIVAS I MR#: [id number] : 1975 Acct:[id number] Age/Sex: 49 / F ADM Date: 04/25/25 Loc: MAMMO Attending Dr: Carlee Schumacher D.O. Ordering Physician: Carlee Schumacher D.O. Results: Date of Service: 04/25/25 Follow Up: Procedure(s): MM tomosynthesis screening BI Accession Number(s): [id number] cc: MELE DUVAL Corey D.O. Patient Name: JAGDISH VIVAS MR#: [id number] : 1975 Exam Date: 04/25/2025 Ordering Doctor: [...] Treatments None Family Cancers None LOCATION: [facility] BREAST COMPOSITION: The breasts are heterogeneously [...] M.D. Signed By: 04/25/251717 DD/ 16 TD/TT: Supervisor Cured Meats: Procedure Note Radiology, Radiologist, MD - 04/25/2025 [place] [address] Mammography Report Signed Patient: JAGDISH VIVAS IMR#: [id number] : 1975Acct:[id number] Age/Sex: 49 / FADM Date: 04/25/25 Loc: MAMMO Attending Dr: Carlee Schumacher D.O. Ordering Physician: Carlee Schumacher D.O.Results: Date of Service: 04/25/25Follow Up: Procedure(s): MM tomosynthesis screening BI Accession Number(s): [id number] cc: MELE DUVAL Corey D.O. Patient Name: JAGDISH VIVAS MR#: [id number] : 1975 Exam Date: 04/25/2025 Ordering Doctor: [...] Treatments None Family Cancers None LOCATION: [facility] BREAST COMPOSITION: The breasts are heterogeneously [...] Bowie M.D. Signed By:04/25/251717 DD/ 16 TD/TT: Supervisor Cured Meats: us Generic External Data Provider [facility] Final Result documented in this encounter Visit Diagnoses Not on filedocumented in this encounter Care Teams Button Facing Machine Operator Relationship Specialty Start Date End Date Mele Duval MD [address] [place] [address] PCP - General Family Medicine 11/30/22 Brigida Gonzalez NP PCP - [facility] 01/23/24 documented as of this encounter
--- OUTSIDE RECORDS SUMMARY | 2025-04-25 20:30 | XMS_ITS | CCD ---
Author Organization [facility] Care Team Providers Care Hot Shot Name Role Phone DAISY, DR WATERMAN Primary Care Unavailable ENDY, DR BEJARANO Attending Unavailable ENDY, DR BEJARANO Consulting Unavailable ENDY, DR BEJARANO Admitting Unavailable DAISY, DR WATERMAN Primary Care Unavailable ENDY, DR BEJARANO Attending Unavailable ENDY, DR BEJARANO Admitting Unavailable [place], DR KELLY Cash Consulting Unavailable ENDY, DR BEJARANO Consulting Unavailable ZIEBER, DR KEILA Hodge Consulting Unavailable DENNIS MASON Attending Unavailable MARLON, DENNIS Consulting Unavailable DENNIS MASON Admitting Unavailable DAISY, DR WATERMAN Primary Care Unavailable Josefina Farias MD Primary Care Provider [phone] Brigida Gonzalez NP Unavailable JOSEFINA FARIAS Primary [...] Antifungal Start: 05-25-2023 End: 05-24-2024 nystatin (Mycostatin) [id number] UNIT/GM powder Indications: Intertrigo Apply topically 2 [...] Every day Duration: 30 Days Pickup at [facility] Pharmacy Information [facility]: [address] [place], [place] [id number] [phone] Allergies propoxyphene (Unknown) Problems Ongoing - Any [...] supports th (more content not included)... Normal [facility] Urology Office/Clinic Noteon 11-20-2024 Urology Office/Clinic Note Urology Office/Clinic Note Chief Complaint New patient [facility] Staff 49 year old female new patient [...] E&M of New Patient Moderate 45-59 Min 41120 Influenza immunization status assessed 1030F Medication list documented in medical record 1159F Most recent diastolic blood pressure 80-89 mm Hg 3079F Review of all meds by a prescribing practitioner or clinical pharmacist documented in EHR 1160F Systolic BP <130 mm Hg (Most Recent) 3074F Urnls Dip Stick Auto w/o Microscopy POC 84950 2. Stress incontinence (N39.3: Stress incontinence (female) (male)) MURTAZA << UUI Pt aware this will not change/improve w med (see #1). Recommended PFPT. Pt provided printed pt education and will attempt at home. Orders: solifenacin, 5 mg = 1 tab(s), Oral, Daily, X 30 day(s), # 30 tab(s), Refills(s) 0, Pharmacy: [facility], 160, cm, 11/20/24 10:56:00 EDT, Height/Length Dosing, 81.3, kg, 11/20/24 10:56:00 EDT, Weight Dosing Follow-up With When Contact Information MARLENE BRADLEY, ELIAS Amador, URL In 3 months [address] [facility] [place] [address] Additional Instructions: Patient Education Overactive [...] 10:50:00) Leuko (more content not included)... Normal [facility] Comment on above: Result Comment: Elec tronically Signed By: MARLENE BRADLEY, ELIAS Fordbr\Date and Time Signed: 11/20/24 11:36 EDT IGP,APTIMA HPV,AGE GDLNon AGE GDLN ACOG TESTING Note . [facility] Comment on above: TESTS RESULT FLAG UN ITS REF RANGE LAB Clinician Provided Cytology Information Source.............Cervix;Endocervix No. of containers..01 ThinPrep Vial Age Algo ACOG Estella... 64 01 FLAG LEGEND: L-Low Normal,H-High Normal,LL-Alert Low,HH-Alert High <-Panic Low,>-Panic High,A-Abnormal,AA-Critical Abnormal Performed at: 01 =[facility] [address] [place] [address] Dalia Ann MD, HPV APTIMA Positive Abnormal Negative [facility] Comment on above: This nucleic acid am plification test detects fourteen high- risk HPV types (16,18,31,33,35,39,45,51,52,56,58,59,66,68) without differentiation. HPV GENOTYPE 16 Negative Negative [facility] HPV GENOTYPE 18,45 Negative Negative [facility] Comment on above: Performed at: =G - L [facility] [address] [id number] Radiology Equipment Servicer: Dalia Ann MD, Phone: [phone] Performed at: WB - [facility] [id number] Radiology Equipment Servicer: Dalia Ann MD, Phone: [phone] IGP, APTIMA HPV, RFX 16/18,45 Note . [facility] Comment on above: TESTS RESULT FLAG UN ITS REF RANGE LAB DIAGNOSIS: 02 NEGATIVE FOR INTRAEPITHELIAL LESION OR MALIGNANCY. Specimen adequacy: 02 Satisfactory for evaluation. Endocervical and/or squamous metaplastic cells (endocervical component) are present. Performed by: Wale Dale, Slubber Runner (ASCP) . 02 Note: Note 02 The [...] <-Panic Low,>-Panic High,A-Abnormal,AA-Critical Abnormal Performed at: [address] [address] Dalia Ann MD, Interpretation and review of laboratory results Abnormal [facility] BRUSH-SPATULA CERVIX ENDOCERVIX CLINISYNC [facility] URETHRITIS/DISCHARGE PLUS VA GINITIS (HTRX)on 04-25-2024 ATOPOBIUM VAGINAE 0.000 [facility] ATOPOBIUM VAGINAE Not detected [facility] BVAB 2,3 (BACTERIAL VAGINOSIS ASSOCIATED BACTERIA 2, 3); MOBILUNCUS SPP 0.000 [facility] BVAB 2,3 (BACTERIAL VAGINOSIS ASSOCIATED BACTERIA 2, 3); MOBILUNCUS SPP Not detected [facility] KHADIJAH ALBICANS, PARAPSILOSIS, TROPICALIS 0.000 [facility] KHADIJAH ALBICANS, PARAPSILOSIS, TROPICALIS Not detected [facility] KHADIJAH GLABRATA 0.000 [facility] KHADIJAH GLABRATA Not [facility] KHADIJAH KRUSEI 0.000 [facility]alt hcare KHADIJAH KRUSEI Not detected [facility] CHLAMYDIA TRACHOMATIS 0.000 [facility] CHLAMYDIA TRACHOMATIS Not detected [facility] ERMB, C; MEFA 20.524 Abnormal [facility] care ERMB, C; MEFA Detected Abnormal [facility] care GARDNERELLA VAGINALIS 20.351 Abnormal [facility] GARDNERELLA VAGINALIS Detected Abnormal [facility] Interpretation and review of laboratory results Abnormal [facility] MEGASPHAERA (TYPES 1, 2) 0.000 [facility] MEGASPHAERA (TYPES 1, 2) Not detected [facility] MYCOPLASMA GENITALIUM 0.000 [facility] MYCOPLASMA GENITALIUM Not detected [facility] NEISSERIA GONORRHOEAE 0.000 [facility] NEISSERIA GONORRHOEAE Not detected [facility] TET B, TET M 19.517 Abnormal [facility] TET B, TET M Detected Abnormal [facility] are TRICHOMONAS VAGINALIS 0.000 [facility] TRICHOMONAS VAGINALIS Not detected Critical access hospital[facility] e PAP ACOG PANEL 2: 30 to 65on 04-26-2022 . . Normal [facility] Comment on above: Result Comment: Perf ormed at: WB Performed By: #### 4 [id number] #### [facility] [address] [place] [address] Dr. Lois Roberts Age Gdln ACOG Testing 30-65 Normal [facility] Comment on above: Performed By: #### 4 [id number] #### [facility] [address] [address] [address] Lois Roberts DIAGNOSIS: Comment Normal [facility] Comment on above: Result Comment: NEGA TIVE FOR INTRAEPITHELIAL LESION OR MALIGNANCY. Performed at: WB Performed By: #### 4 [id number] #### [facility] [address] [place] [address] Dr. Lois Roberts HPV Aptima Negative Normal Negative [facility] Comment on above: Result Comment: This nucleic acid amplification test detects fourteen high-risk HPV types (16,18,31,33,35,39,45,51,52,56,58,59,66,68) without differentiation. Performed at: =G Performed By: #### 4 [id number] #### [facility] [address] [place] [address] Dr. Lois Roberts Methodology: Comment Normal [facility] Comment on above: Result Comment: This liquid based ThinPrep(R) pap test was screened with the use of an image guided system. Performed at: WB Performed By: #### 4 [id number] #### [facility] [address] [place] [address] Dr. Lois Roberts Note: Comment Normal [facility] Comment on above: Result Comment: The Pap smear is a screening test designed to aid in the detection of premalignant and malignant conditions of the uterine cervix. It is not a diagnostic procedure and should not be used as the sole means of detecting cervical cancer. Both false-positive and false-negative reports do occur. . Performed at: WB Performed By: #### 4 [id number] #### [facility] [address] [address] [address] Lois Roberts Performed by: Comment Normal [facility] Comment on above: Result Comment: Laura Riley, Slubber Runner (ASCP) Performed at: WB Performed By: #### 4 [id number] #### [facility] [address] [place], [place] [address] Dr. Lois Roberts Specimen adequacy: Comment Normal [facility] Comment on above: Result Comment: Sati sfactory for evaluation. Endocervical and/or squamous metaplastic cells (endocervical component) are present. Performed at: WB Performed By: #### 4 [id number] #### [facility] [address] [address] [address] Lois Roberts MG MAMM SCREEN 3D WENCESLAO CADon 04-22-2022 MG MAMM SCREEN 3D WENCESLAO CAD Patient: JAGDISH VIVAS I. Exam Date: 04/22/2022 : 1975 Gender:F Ordering : DR CARLEE SCHUMACHER . Admission #: [id number] Family : Order #: [id number] CLICK HERE TO VIEW EXAM RADIOLOGY REPORT [...] Treatments None Family Cancers None LOCATION: [facility] BREAST COMPOSITION: Heterogeneously dense,which may obscure small [...] MD on 04/23/2022 at 07:57 Normal [facility] US PELVIS AND TRANSVAGon US PELVIS AND [...] by: KEILA BHAKTA Date: 2022-04-22 12:03 Normal [facility] Complete Blood Count with Au to Diffon 11-03-2021 Basophils (Bld) [#/Vol] 0.03 10*3/uL Normal 0.00-0.20 [facility] Fertilizer Supervisor Comment on above: Performed By: #### C BCAD, TSH reflex FT4 #### [facility] [address] [place], [place] [id number] Basophils/100 WBC (Bld) 0.4 % Normal [facility] Fertilizer Supervisor Comment on above: Performed By: #### C BCAD, TSH reflex FT4 #### [facility] [address] [place], [place] [id number] Eosinophils (Bld) [#/Vol] 0.09 10*3/uL Normal 0.02-0.50 [facility] Fertilizer Supervisor Comment on above: Performed By: #### C BCAD, TSH reflex FT4 #### [facility] [address] [place], [place] [id number] Eosinophils/100 WBC (Bld) 1.3 % Normal [facility] Specialist Comment on above: Performed By: #### C BCAD, TSH reflex FT4 #### [facility] [address] [place], [place] [id number] Erythrocyte distribution width (RBC) [Ratio] 13.9 % Normal 11.0-15.0 [facility] Comment on above: Performed By: #### C BCAD, TSH reflex FT4 #### [facility] [address] [place], [place] [id number] Hematocrit (Bld) [Volume fraction] 40.3 % Normal 35.0-47.0 [facility] Comment on above: Performed By: #### C BCAD, TSH reflex FT4 #### [facility] [address] [place], [place] [id number] Hemoglobin (Bld) [Mass/Vol] 12.5 g/dL Normal 11.6-15.5 [facility] Comment on above: Performed By: #### C BCAD, TSH reflex FT4 #### [facility] [address] [place], [place] [id number] Lymphocytes (Bld) [#/Vol] 1.8 10*3/uL Normal 0.9-3.9 [facility] Comment on above: Performed By: #### C BCAD, TSH reflex FT4 #### [facility] [address] [place], [place] [id number] Lymphocytes/100 WBC (Bld) 26.5 % Normal [facility] Comment on above: Performed By: #### C BCAD, TSH reflex FT4 #### [facility] [address] [place], [place] [id number] MCH (RBC) [Entitic mass] 25.5 pg Low 27.0-33.0 [facility] Comment on above: Performed By: #### C BCAD, TSH reflex FT4 #### [facility] [address] [place], [place] [id number] MCHC (RBC) [Mass/Vol] 31.0 g/dL Low 32.0-36.0 [facility] Comment on above: Performed By: #### C BCAD, TSH reflex FT4 #### [facility] [address] [place], [place] [id number] MCV (RBC) [Entitic vol] 82 fL Normal 80-100 [facility] Comment on above: Performed By: #### C BCAD, TSH reflex FT4 #### [facility] [address] [place], [place] [id number] Monocytes (Bld) [#/Vol] 0.5 10*3/uL Normal 0.2-0.9 [facility] Comment on above: Performed By: #### C BCAD, TSH reflex FT4 #### [facility] [address] [place], [place] [id number] Monocytes/100 WBC (Bld) 7.0 % Normal [facility] Comment on above: Performed By: #### C BCAD, TSH reflex FT4 #### [facility] [address] [place], [place] [id number] Neutrophils (Bld) [#/Vol] 4.3 10*3/uL Normal 1.5-7.8 [facility] Comment on above: Performed By: #### C BCAD, TSH reflex FT4 #### [facility] [address] [place], [place] [id number] Neutrophils/100 WBC (Bld) 64.7 % Normal [facility] Comment on above: Performed By: #### C BCAD, TSH reflex FT4 #### [facility] [address] [place], [place] [id number] Platelet mean volume (Bld) [Entitic vol] 11.20 fL Normal 7.50-12.50 [facility] Comment on above: Performed By: #### C BCAD, TSH reflex FT4 #### [facility] [address] [place], [place] [id number] Platelets (Bld) [#/Vol] 369 10*3/uL Normal 140-400 [facility] Comment on above: Performed By: #### C BCAD, TSH reflex FT4 #### [facility] [address] [place], [place] [id number] RBC (Bld) [#/Vol] 4.90 10*6/uL Normal 3.90-5.20 [facility] Specialist Comment on above: Performed By: #### C BCAD, TSH reflex FT4 #### [facility] [address] [place], [place] [id number] RDW-SD 41.5 fL Normal 37.0-50.0 [facility] Comment on above: Performed By: #### C BCAD, TSH reflex FT4 #### [facility] [address] [place], [place] [id number] WBC (Bld) [#/Vol] 6.7 10*3/uL Normal 3.8-11.[address] [facility] Specialist Comment on above: Performed By: #### C BCAD, TSH reflex FT4 #### [facility] [address] [place], [place] [id number] TSH w/ Reflex to Free T4on 0 11-03-2021 TSH 0.652 uIU/mL Normal 0.400-4.500 [facility] Fertilizer Supervisor Comment on above: Performed By: #### C BCAD, TSH reflex FT4 #### [facility] [address] [place], [place] [id number] XR Chest 2 Views*on 08-20-19 22 XR [...] by Demarco Aguillon on 08/24/2021 0912 Normal [facility] Covid-19 PCR (CVDTB)on 06-25 SARS-CoV-2 (COVID-19) RNA TAMEKA+probe Ql (Unsp spec) Not detected Normal NOT DETECTED [facility] Comment on above: Result Comment: This test is not yet approved or cleared by the [place] FDA. When there are no FDA-approved or cleared tests available, and other criteria are met, FDA can make tests available under an emergency access mechanism called an Emergency Use Authorization (EUA). The EUA for this test is supported by the [place] of Health and Human Service's (HHS's) declaration [...] with SARS-CoV-2. Performed By: #### C [facility] #### [facility] [address] [place] [address] Dr. Lois Roberts Vital Signs Date Time Vital Sign Value Performing Clinician Jani delgado 11-12-2024 14:01-0400 Body mass index (BMI) [Ratio] 30.06 kg/m2 Alessia DIAZ Work Phone: [facility] 11-12-2024 14:01-0400 Body weight 84.48 kg Alessia Veloz PA Work Phone: [facility] 11-12-2024 14:01-0400 Diastolic blood pressure 90 mm[Hg] Alessia Veloz PA Work Phone: [facility] 11-12-2024 14:01-0400 Systolic blood pressure 130 mm[Hg] Alessia Veloz PA Work Phone: [facility] 08-20-2024 11:49-0500 Body mass index (BMI) [Ratio] 30.8 kg/m2 Alessia Veloz PA Work Phone: [facility] 08-20-2024 11:49-0500 Body weight 86.55 kg Alessia Veloz PA Work Phone: [facility] 08-20-2024 11:49-0500 Diastolic blood pressure 80 mm[Hg] Alessia Veloz PA Work Phone: [facility] 08-20-2024 11:49-0500 Systolic blood pressure 140 mm[Hg] Alessia Veloz PA Work Phone: [facility] 05-21-2024 12:04-0400 Body height 167.6 cm Alessia Veloz PA Work Phone: [facility] 05-21-2024 12:04-0400 Body mass index (BMI) [Ratio] 30.34 kg/m2 Alessia Nidhi PA Work Phone: [facility] 05-21-2024 12:04-0400 Body weight 85.28 kg Alessia Veloz PA Work Phone: [facility] 05-21-2024 12:04-0400 Diastolic blood pressure 82 mm[Hg] Alessia Veloz PA Work Phone: [facility] 05-21-2024 12:04-0400 Systolic blood pressure 122 mm[Hg] Alessia Veloz PA Work Phone: [facility] 04-23-2024 13:47-0400 Body mass index (BMI) [Ratio] 30.86 kg/m2 Carlee Endy DO Work Phone: [facility] 04-23-2024 13:47-0400 Body weight 86.73 kg Carlee Endy DO Work Phone: [facility] 04-23-2024 13:47-0400 Diastolic blood pressure 72 mm[Hg] Carlee Endy DO Work Phone: [facility] 04-23-2024 13:47-0400 Systolic blood pressure 122 mm[Hg] Carlee Endy DO Work Phone: [facility] Encounters Encounter Date Encounter Type Care Provider Facility Start: 03-28-2025 End: 03-28-2025 ambulatory Yumi Tejeda Facility:[facility] Start: 03-28-2025 End: 03-28-2025 Patient encounter procedure Yumi Tejeda [facility] Start: 11-20-2024 End: 11-20-2024 ambulatory ELIAS ROSARIO Facility:[facility] Start: 11-12-2024 End: 11-12-2024 Bamboo flowsheet Alessia DIAZ Work Phone: [facility] Start: 11-12-2024 End: 11-12-2024 Bamboo flowsheet Alessia Veloz PA Work Phone: [facility] Start: 11-12-2024 End: 11-12-2024 ambulatory ALESSIA VELOZ Not Available Start: 11-12-2024 End: 11-12-2024 Office outpatient visit 15 minutes Alessia DIAZ Work Phone: [facility] Comment on above: Encounter for weight management; Yeast infection; Bacterial vaginosis; Stress incontinence of urine Start: 08-20-2024 End: 08-20-2024 Bamboo flowsheet Alessia DIAZ Work Phone: [facility] Start: 08-20-2024 End: 08-20-2024 Bamboo flowsheet Alessia DIAZ Work Phone: [facility] Start: 08-20-2024 End: 08-20-2024 ambulatory ALESSIA VELOZ Not Available Start: 08-20-2024 End: 08-20-2024 Office outpatient visit 15 minutes Alessia DIAZ Work Phone: [facility] Comment on above: Encounter for weight management Start: 06-20-2024 End: 06-20-2024 Refill Josefina Farias MD Work Phone: [facility] Comment on above: Bacterial vaginitis (Primary Dx) Start: 05-29-2024 End: 05-29-2024 ambulatory ELIAS ROSARIO Facility:[facility] Start: 05-29-2024 End: 05-29-2024 Patient encounter procedure ELIAS ROSARIO [facility] Start: 05-21-2024 End: 05-21-2024 Bamboo flowsheet Alessia DIAZ Work Phone: [facility] Start: 05-21-2024 End: 05-21-2024 Bamboo flowsheet Alessia Veloz PA Work Phone: [facility] Start: 05-21-2024 End: 05-21-2024 ambulatory ALESSIA VELOZ Not Available Start: 05-21-2024 End: 05-21-2024 Office outpatient visit 5 minutes Alessia Veloz PA Work Phone: [facility] Comment on above: Encounter for weight management Start: 04-24-2024 ambulatory Yumi Maisael Facility: [facility] Start: 04-23-2024 End: 04-23-2024 Bamboo flowsheet [...] for tu bal ectopic by abdominal approach Similar Pages Extraction of wisdom tooth A urora [facility] Hysteroscopy Similar Pages Plan of Treatment Date Care Activity Detail Author Start: 04-23-2027 Screening for malignant neoplasm of cervix [facility] Start: 04-25-2025 End: 04-25-2025 Patient encounter procedure [facility] Start: 03-25-2025 Influenza vaccination Influenz a Vaccine (Season Ended) [facility] Start: 02-04-2025 End: 02-04-2025 Patient encounter procedure 02/04/2025 4:00 PM EDT Office Visit [facility] [address] [place] [address] Alessia Veloz PA [address] [place] [address] [facility] Start: 11-12-2024 End: 11-12-2024 Patient encounter procedure 11/12/2024 1:30 PM EDT Office Visit [facility] [address] [place] [address] Alessia Veloz PA [address] [place] [address] [facility] Start: 08-20-2024 End: 08-20-2024 Patient encounter procedure 08/20/2024 11:30 AM EST Office Visit [facility] [address] [place] [id number] Alessia Veloz, PA [address] [place], [place] [id number] [facility] Start: 05-21-2024 End: 05-21-2024 Patient encounter procedure 05/21/2024 11:40 AM EDT Office Visit [facility] [address] [place] [id number] Alessia Veloz, PA [address] [place], [place] [id number] [facility] Start: 05-05-2024 Screening for malignant neoplasm of breast Mammogram [facility] Start: 04-23-2024 End: 06-23-2025 MG Breast - bilateral Screening Bilateral screening mammogram Imaging Routine Breast cancer screening by mammogram Expected: 04/23/2024 (Approximate), Expires: 06/23/2025 [facility] Work Phone: Comment on above: Expected: 04/23/2024 (Approximate), Expires: 06/23/2025 Start: 04-23-2024 End: 04-23-2025 US for US PELVIS-TRANSVAG IF INDICATED Imaging Routine Uterine leiomyoma, unspecified location Expected: 04/23/2024 (Approximate), Expires: 04/23/2025 [facility] Comment on above: Expected: 04/23/2024 (Approximate), Expires: 04/23/2025 Start: 03-25-2024 Influenza vaccination Influenza Vacc ine (#1) [facility] Start: 2004 Screening for malignant neoplasm of cervix [facility] Start: 10-24-1995 Screening for malignant neoplasm of cervix Pap Smear [facility] Start: 1975 Screening for malignant neoplasm of colon [facility] THIN PREP TIS PAP AN D HR HPV DNA THIN PREP TIS PAP AND HR HPV DNA Pathology and Cytology Routine Well woman exam with routine gynecological exam Ordered: 04/23/2024 [facility] Comment on above: Ordered: 04/23/2024 Immunizations Immunization Date Immunization Notes Care Provider Marquez medina 06-08-2021 SARS-CoV-2 (COVID-19 ) mRNA BNT-162b2 [employer] [facility] Comment on above: Result Comment: 2024: [id number] 11-11-2020 SARS-CoV-2 (COVID-19 ) mRNA BNT-162b2 vax Similar Pages [facility] 10-21-2020 SARS-CoV-2 (COVID-19 ) mRNA BNT-162b2 [employer] [facility] 11-02-2016 tetanus toxoid, redu lele diphtheria toxoid, and acellular pertussis vaccine, adsorbed Carleeimelda Schumacher DO Work Phone: [facility] Payers Date Payer Category Payer Medicaid [id number] 2019 Medicaid (Managed Care) [facility] MEDICAID [id number] 1974 Unknown [id number] 2.16.840.1.165591.3.579.2. 593 1974 Unknown [id number] 2.16.840.1.729095.3.579.2. 593 1974 Unknown [id number] 2.16.840.1.961782.3.579.2. 593 1974 Unknown [id number] 2.16.840.1.463510.3.579.2. 9 1974 Unknown [id number] 2.16.840.1.108305.3.579.2. 9 1974 Unknown [id number] 2.16.840.1.092572.3.579.2. 9 1974 Unknown [id number] 2.16.840.1.495484.3.579.2. 9 1974 Unknown [id number] 2.16.840.1.897105.3.579.2. 727 1974 Unknown [id number] 2.16.840.1.477242.3.579.2. 727 1974 Unknown [id number] 2.16.840.1.403481.3.579.2. 727 1974 Unknown [id number] 2.16.840.1.106189.3.579.2. 727 1959 Unknown [id number] Social History Date Type Detail Facility Start: 04-07-2023 End: 11-20-2024 Tobacco smoking status [facility] Never smoked tobacco [facility] Start: 04-07-2023 Tobacco use and exposure Smokeless tobacco non-user [facility] Start: 04-23-2024 End: 08-20-2024 Alcoholic beverage intake Current drinker of alcohol (finding) [facility] Start: 05-06-2023 End: 04-23-2024 Alcoholic beverage intake [facility] Start: 05-06-2023 End: 07-27-2023 Tobacco use panel [facility] Start: 04-07-2023 Alcohol Comment Alcohol: 1 or 2 drinks on a typical day / 2 to 4 times a month. Caffeine: 1-2 cups/day soda, tea [facility] Start: 1975 Sex assigned at Not on file N [facility] Tobacco smoking status [facility] Tobacco smoking status Never [facility] Sex Female (finding) [facility] Clinical Notes 04-23-2024 to 11-20-2024 Natalia Zheng [...] health care provider. General instructions ??? Take [id number] and prescription medicines only as told by [...] drink, and whe (more content not included)... [facility] 11-12-2024 History of Present illness Narrative Reason [...] removed- right ovary surgically removed done at [place] VAGINAL DELIVERY REVIEW OF SYSTEMS Review of [...] nursing note reviewed. Exam conducted with a compounder present. Vitals: Estimated body mass index is [...] Carlee Schumacher DO documented in this encounter [facility] 08-20-2024 History of Present illness Narrative Reason [...] Major depressive disorder, single episode, moderate (HCC) ([facility]) 05/06/2023 Menometrorrhagia 05/06/2023 Mood disorder ([facility]) 05/06/2023 Obstructive sleep apnea syndrome 05/06/2023 Other [...] removed- right ovary surgically removed done at [place] VAGINAL DELIVERY REVIEW OF SYSTEMS Review of [...] of: JOE Tony documented in this encounter [facility] 05-21-2024 History of Present illness Narrative Reason [...] removed- right ovary surgically removed done at [place] VAGINAL DELIVERY Assessment/Plan Encounter Diagnosis Name Primary? [...] of JOE Tony documented in this encounter [facility] 04-23-2024 History of Present illness Narrative Reason [...] removed- right ovary surgically removed done at [place] VAGINAL DELIVERY REVIEW OF SYSTEMS Review of [...] nursing note reviewed. Exam conducted with a compounder present. Vitals: Estimated body mass index is [...] Natalia Zheng LPN on behalf of: Carlee Schumacehr DO documented in this encounter [facility] Healthcare Evaluation + Plan note No data available for this section [facility] Evaluation note Diagnosis Encounter for weight [...] mention of complication documented in this encounter [facility] HealthcareEvaluation note* Diagnosis Encounter for weight management Yeast infection Bacterial vaginosis Unspecified vaginitis and vulvovaginitis Stress incontinence of urine documented in this encounter [facility] HealthcareHospital Discharge instructions No data available for this section [facility] [place] progress note No data available for this section [facility] Namely Summary Purpose Family History No Family History [...] section and content) DATE CREATED AUTHOR 11/04/2021 [facility] dical Specialist DATE CREATED AUTHOR AUTHOR'S ORGANIZ ATION 04/26/2022 [facility] DATE CREATED AUTHOR AUTHOR'S ORGANIZ ATION 11/12/2024 [facility] Specialists EPIC DATE CREATED AUTHOR AUTHOR'S ORGANIZ ATION 03/31/2025 [facility] Care Teams (unrecognized sec tion and content) Hot Shot Relationship Specialty Start Date End Date Josefina Farias MD [address] [place] [address] PCP - General Family Medicine 11/30/22 Brigida Gonzalez [employer] SPECIALIST [address] [facility] [place] [address] PCP - [facility] 01/23/24 Hot Shot Relationship Specialty Start Date End Date Josefina Farias MD [address] [facility] [place] [address] PCP - General Family Medicine 11/30/22 Brigida Gonzalez [employer] SPECIALIST [address] [place] [address] PCP - [facility] 01/23/24 Hot Shot Relationship Specialty Start Date End Date Josefina Farias MD [address] [place] [address] PCP - General Family Medicine 11/30/22 Brigida Gonzalez [employer] SPECIALIST [address] [place] [address] PCP - [facility] 01/23/24 Hot Shot Relationship Specialty Start Date End Date Josefina Farias MD [address] [place] [address] PCP - General Family [facility] 11/30/22 Brigida Gonzalez, [employer] SPECIALIST [address] [place] [address] PCP - [facility] 01/23/24 Hot Shot Relationship Specialty Start Date End Date Josefina Farias MD [address] [place] [address] PCP - General [facility] 11/30/22 Brigida Gonzalez, [employer] SPECIALIST [address] [facility] [place] [address] PCP - [facility] 01/23/24 Hot Shot Relationship Specialty Start Date End Date Josefina Farias MD [address] [place] [address] PCP - General Family [facility] 11/30/22 Brigida Gonzalez, [employer] SPECIALIST [address] [facility] [place] [address] PCP - [facility] 01/23/24 Hot Shot Relationship Specialty Start Date End Date Josefina Farias MD [address] [facility] [place] [address] PCP - General Family Medicine 11/30/22 Brigida Gonzalez, [employer] SPECIALIST PCP - [facility] 01/23/24 Hot Shot Relationship Specialty Start Date End Date Josefina Farias MD [address] [facility] [place] [address] PCP - General Family Medicine 11/30/22 Brigida Gonzalez NP PCP - [facility] 01/23/24 Hot Shot Relationship Specialty Start Date End Date Josefina Farias MD [address] [place] [address] PCP - General Family Medicine 11/30/22 Brigida Gonzalez NP PCP - [facility] 01/23/24 Reason for Visit (unrecogniz ed [...] BE BASED ON THE PRIMARY CLINICAL RECORDS. [facility] [employer] [facility]. provides no warranty or guarantee of the accuracy or completeness of information in this document.
== END 2025-04-25 20:25 | disposition home or self-care (01) ==
LOC: LAB 20:24
PROVIDERS: PCP Family Medicine; Visit Provider Nurse Practitioner Family
DX: Z01.419 Encounter for gynecological examination (general) (routine) without abnormal findings (principal)
CPT/HCPCS: 87624; 88175